=== PATIENT | female | born 1950 | race Caucasian/White ===

== ENCOUNTER 2016-07-11 19:17 | Inpatient (IN) ==
[2016-07-11] MEDS ORDERED: HYDROmorphone 2 MG/1 ML VIAL ONE (20:10)
[2016-07-11] MEDS ORDERED: ONDANSETRON 4 MG/2 ML VIAL ONE ×2 (20:10→21:07)
[2016-07-11 20:13] LABS: Albumin 3.6 G/DL (3.4-5.0); Bilirubin,Total 0.8 MG/DL (0.2-1.0); Calcium 8.2 MG/DL (8.5-10.1); Osmolality,Calculated 289.8 MOS/KG (273-304); Potassium 3.7 MMOL/L (3.5-5.1); Total Protein 7.1 G/DL (6.4-8.3)
--- NOTE | 2016-07-11 20:17 | CT Report ---
Exam: CT scan of brain without contrast Date: 07/11/2016 Indication: Status post fall decreased level consciousness Comparison: None Patient's classification: Emergency department Technical: Images were obtained from the skull base to the vertex without the use of intravenous contrast. Dose reduction was performed with decreasing kv and mA and automated exposure Total DLP: 1025.6 mGy*cm Findings: Examination reveals an area of infarction in the left basal ganglia that appears to be old with encephalomalacia change and some subsequent enlargement of the ventricle system and cerebral atrophy present. The brainstem is otherwise unremarkable. Cerebellum reveals no acute hemorrhage or infarction. The paranasal sinuses globes and sella are intact. The mastoids are otherwise unremarkable. Bilateral lung ureters are present and surgical changes present in the left middle ear region Impression: 1. 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 No acute hemorrhage infarct or mass effect 3. Previous surgical changes in the left middle ear region PROCEDURE INTERPRETED AT [facility] DEPARTMENT OF RADIOLOGY Final Report Signed by: Dr. Mannie Gardner
[2016-07-11] MEDS ORDERED: HYDROmorphone 2 MG/1 ML VIAL IV STA (20:18)
--- NOTE | 2016-07-11 20:19 | XRay Report ---
Exam: XR hip 2V LT Date: 07/11/2016 7:53 PM Indication: Pain after falling Comparison: None Technical:AP lateral Findings: Examination reveals that intratrochanteric fracture of the right hip suspected. The femoral head is seated within the acetabular region. There is a proximal 90? angulation with impaction at the fracture site. Fracture of the lesser trochanteric region also present. The pubic rami are intact. The SI joints and sacrum iliac wings are intact. Impression: 1. Impacted intratrochanteric fracture left femoral neck with avulsion fracture of the lesser trochanteric region. PROCEDURE INTERPRETED AT [facility] DEPARTMENT OF RADIOLOGY Final Report Signed by: Dr. Mannie Gardner
--- NOTE | 2016-07-11 20:27 | Emergency Department Note ---
Arrival - Arrival Chief Complaint: Fall ED Nursing Triage Note: C/O Left hip pain s/p tripping and falling onto left side. Pt reports that she was unable to get up after the fall. +pedal pulses palpated equal and strong. unable to straighten out leg due to pain. Pt was given 5mg Morphine/4mg zofran IV without much relief in pain Mode of Arrival: Stretcher Limitations: No Limitations Source: Patient Time Seen by Provider: 07/11/16 19:42 - History of Present Illness HPI Narrative: The patient complains of left hip pain after tripping and falling onto her left side. She states she had a brief loss of consciousness and was unable to get up from the fall. She was down on the floor for approximately one hour. She denies any other pain or injury at present. She states she has osteoporosis and has had multiple broken bones in the past, but never any hip fractures or replacements. Date of Last Menstrual Period: Hysterectomy Allergies/Adverse Reactions: Allergies Allergy/AdvReac Type Severity Reaction Status Date / Time codeine Allergy Nausea Verified 10/21/15 15:02 iodine Allergy Nausea Verified 10/21/15 15:02 meperidine [From Demerol] Allergy Nausea Verified 10/21/15 15:02 Home Medications: Home Medications Medication Instructions Recorded Confirmed Type Acetaminophen Tab [Tylenol Tab] 325 mg PO BID tablet 10/26/15 07/11/16 Rx Aspirin Chew Tab 81 mg PO DAILY tablet 10/26/15 07/11/16 Rx Captopril [Capoten] 6.25 mg PO BID #60 tablet 10/26/15 07/11/16 Rx Carvedilol [Coreg] 3.125 mg PO BID #60 tablet 10/26/15 07/11/16 Rx Furosemide Tab [Lasix Tab] 20 mg PO DAILY #30 tablet 10/26/15 07/11/16 Rx Spironolactone [Aldactone] 12.5 mg PO DAILY #30 tablet 10/26/15 07/11/16 Rx Review of System - Review of System 12 point system: reviewed and no additional remarkable complaints except as stated - Review of System Musculoskeletal: Present: leg pain Medical,Surgical,& Family Hx - Medical History Cardio: History of: Hypertension, Valvular Heart Disease Endocrine: History of: Dyslipidemia Musculoskeletal: History of: Osteoporosis - Surgical History Surgical History: noncontributory - Family History Family History: noncontributory - Social History Smoking Status: Never smoker Frequency of Alcohol Use: None Exam Physical Examination: GENERAL: Alert. No acute distress. HEENT: Normocephalic and atraumatic. PERRLA. EOMI. No mccall sign. No drainage from the ears. There is no nasal drainage. No pharyngeal erythema or exudate. NECK: Normal inspection. Supple. No lymphadenopathy or meningismus. LUNGS: No respiratory distress. Clear to auscultation bilaterally, no wheezes, rales or rhonchi. HEART: Regular rate and rhythm. Harsh 3/6 systolic murmur. ABDOMEN: Soft, nontender and nondistended with normoactive bowel sounds. BACK: Normal inspection. SKIN: Color normal. Warm and dry. EXTREMITIES: There is tenderness and deformity over the left hip. No ecchymosis noted. The extremity is flexed at the hip and shortening and internally rotated. The patient will not allow movement at the hip. She has full range of motion in the ankle and toes. Dorsalis pedis pulses and capillary refill are normal. Sensation is normal. NEUROLOGICAL/PSYCHIATRIC: Alert and oriented 3 with normal mood and affect. Cranial nerves normal. No motor or sensory deficit. Vital Signs: Vital Signs Temperature 97.5 F L 07/11/16 19:17 Pulse Rate 65 07/11/16 20:30 Respiratory Rate 18 07/11/16 20:30 Blood Pressure 177/71 07/11/16 20:30 O2 Sat by Pulse Oximetry 98 07/11/16 20:30 Course - Reevaluation(s) Reevaluation #1: I have discussed the patient with Dr. Soto and will admit to him for repair of hip fracture. Time: 21:08 Results - Labs CBC & BMP: 07/11/16 19:38 07/11/16 19:38 Lab Results: I have reviewed the patients labs - Impressions CT of the head shows an old lacunar infarct but no acute findings. X-ray of the left hip shows an impacted intratrochanteric fracture of the left femoral neck Disposition Clinical Impression: Hip fracture Case discussed with: patient, patient's family Disposition: Still a Patient Condition: Stable Time of Disposition: 21:08
[2016-07-11 20:47] LABS: Basophils % 0.3 % (0.0-0.8); Eosinophils # 0.3 10*3/uL (0.0-0.87); Eosinophils % 2.7 % (0.00-10.9); Hematocrit 38.9 VOL% (35.7-47.0); Hemoglobin 12.8 GM/DL (12.0-16.0); Immature Granulocytes % 0.7 %; Immature Granulocytes Absolute 0.08 #; Lymphocytes # 0.9 10*3/uL (1.4-4.0); Lymphocytes % 7.5 % (21.3-54.2); Mean Corpuscular HGB Conc 32.9 GM/DL (32-36); Mean Corpuscular Hemoglobin 28 PG (27-34); Mean Corpuscular Volume 84.6 FL (87-102); Monocytes # 0.4 10*3/uL (0.11-0.8); Monocytes % 3.1 % (1.7-12.7); Neutrophils # 10.5 10*3/uL (1.4-7.4); Neutrophils % 85.7 % (38.7-73.9); Platelet Count 211 10*3/uL (130-400); White Blood Count 12.2 10*3/uL (4.5-13.71)
--- NOTE | 2016-07-11 21:14 | EKG Report ---
Stationary ECG Study 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
[2016-07-11] MEDS ORDERED: ONDANSETRON 4 MG/2 ML VIAL IV STA (21:15)
--- NOTE | 2016-07-11 21:21 | XRay Report ---
Exam: XR chest 1V portable Date: 07/11/2016 8:48 PM Indication: Respiratory preop evaluation of the chest fractured left hip Comparison: 10/24/2015 Technical:AP portable Findings: Cardiomegaly is present. External cardiac leads and oxygen tubing are present. No obvious effusions. A few reticular nodular densities are present. Mediastinum is intact. Bony demineralization is present with arthritic change of the shoulders and thoracic spine. Impression: 1. Cardiomegaly without overt decompensation. PROCEDURE INTERPRETED AT [facility] DEPARTMENT OF RADIOLOGY Final Report Signed by: Dr. Mannie Gardner
[2016-07-11] MEDS ORDERED: MAGNESIUM HYDROXIDE SUSP 30 ML UDCUP PO PRN (21:48)
[2016-07-11] MEDS ORDERED: PROMETHAZINE 25 MG/1 ML VIAL IM PRN (21:48)
[2016-07-11 22:45] LABS: PT Patient Result 10.5 SECS; Partial Thromboplastin Time 27.9 SECS (0-40)
[2016-07-11] MEDS: DEXTROSE 5% NACL 0.45% 1,000 ML IV SCH (22:46)
[2016-07-11] MEDS: ONDANSETRON 4 MG/2 ML VIAL IV PRN (23:04)
[2016-07-12] MEDS: HYDROmorphone 2 MG/1 ML VIAL IV PRN ×4 (02:19→21:24)
[2016-07-12] MEDS: ONDANSETRON 4 MG/2 ML VIAL IV PRN ×4 (05:04→21:38)
--- NOTE | 2016-07-12 05:50 | Hospitalist Consult Note ---
Assessment and Plan (1) Fracture of femoral neck, left Status: Acute Current Visit: Yes (2) Hypertension Status: Acute Current Visit: Yes (3) Mitral regurgitation Status: Acute Assessment and plan: Plan: Continue her current home medications. We'll resume her ACEi postop. Hold her aspirin for now. Given her history of mitral regurgitation and, according to the patient, worsening shortness of breath with exertion as of late, we'll consult Dr. 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 She was seen last year for chest pain, and I'm unsure if/when she is followed up with him for echo and stress test. In the meantime blood pressure control and supportive care for pain and nausea. At this time she reports no shortness of breath at rest, and no chest pain. Her EKG does not show any acute ischemic changes. Current Visit: Yes History of Present Illness - Data of Consult Consult date: 07/12/16 Requesting Physician: Jose Soto Jr. - Consult Narrative Reason for consult: pre op eval History of present illness: Ms. Ortiz is a 66 year old female with hypertension, mitral regurgitation, who tripped over a box of water this evening resulting in a fall and left femoral neck fracture. She denies any chest pain preceding the event to her syncopal episode prior to, however she states after the fall she may have lost consciousness for "a little bit." CT brain was negative. She sees Dr. Kiser for mitral regurg and "congestive heart failure." I saw her last discharge summary from October 2015 at which time she had chest pain, normal EF on echo as well as MR. Her chest pain was thought to be more chest wall etiology and she declined heart cath that time. Not sure exactly if and when she followed up with Dr. Kiser for stress test and echo and what the showed. She does report worsening dyspnea on exertion lately and occasional chest pain however she does not have either of these symptoms now while resting in bed. She denies nausea vomiting or fever or cough. CC: Jose Soto Jr., - Home Medications and Allergies Home Medications: Home Medications Medication Instructions Recorded Confirmed Type Acetaminophen Tab [Tylenol Tab] 325 mg PO BID tablet 10/26/15 07/11/16 Rx Aspirin Chew Tab 81 mg PO DAILY tablet 10/26/15 07/11/16 Rx Captopril [Capoten] 6.25 mg PO BID #60 tablet 10/26/15 07/11/16 Rx Carvedilol [Coreg] 3.125 mg PO BID #60 tablet 10/26/15 07/11/16 Rx Furosemide Tab [Lasix Tab] 20 mg PO DAILY #30 tablet 10/26/15 07/11/16 Rx Spironolactone [Aldactone] 12.5 mg PO DAILY #30 tablet 10/26/15 07/11/16 Rx Allergies/Adverse Reactions: Allergies Allergy/AdvReac Type Severity Reaction Status Date / Time codeine Allergy Nausea Verified 10/21/15 15:02 iodine Allergy Nausea Verified 10/21/15 15:02 meperidine [From Demerol] Allergy Nausea Verified 10/21/15 15:02 Medical,Surgical,& Family Hx - Medical History Cardio: History of: CHF, Hypertension, Valvular Heart Disease (mitral regurgitation) HEENT: History of: Eye Problem (glasses) Endocrine: History of: Dyslipidemia No history of: Diabetes Mellitus (NIDDM) Genitourinary: History of: Kidney Stones Musculoskeletal: History of: Back/Neck Problems (back problems), Osteoporosis - Surgical History Cardiac Surgeries: Patient Denies: Cardiac Catheterization Thoracic Surgeries: Surgical HX of;: Lithotripsy Patient denies;: Lobectomy Neurologic Surgeries: Patient denies: Neurologic Surgery HEENT Surgeries: Patient denies: Tonsilectomy & Adenoidectomy Abdominal Surgeries: Surgical HX of: Abdominal Surgery, Appendectomy Reproductive Surgeries: Surgical HX of;: Hysterectomy Orthopedic Surgeries: Surgical HX of;: Orthopedic Surgery (left leg, back) - Family History Family History: Reports;: Family Cancer (father), Family Heart Disease (mother) , Family Hypertension (mom and dad) - Social History Smoking Status: Never smoker Frequency of Alcohol Use: None Marital Status: Unknown Functional capacity: independent ambulation Review of systems: A 12 point review of systems is negative except as specified in the HPI Exam - Constitutional Vitals: Period Temp Pulse Resp BP Sys/Gurrola Pulse Ox Last 24 Hr 96.9 F-97.6 F 58-66 16-18 134-170/59-72 92-98 Exam: EXAM: CONSTITUTIONAL: non toxic, NAD HEENT: NC, AT, OP benign, ADELITA, EOMI CV: RRR + grade 3/6 holosystolic murmur at the apex RESP: clear B/L, no w/r/r GI: abd soft, NT, ND, +bowel sounds INTEGUMENTARY: no lesions or rash EXTREMITIES: Left lower extremity appears internally rotated, hip is tender to palpation, pedal pulses intact NEURO: no focal deficits PSYCH: Awake and alert Results - Labs CBC & BMP: 07/11/16 19:38 07/11/16 19:38 Lab Results: I have reviewed the past 24 hour labs - EKG EKG shows: sinus rhythm - Diagnostic Findings Procedure: Chest x-ray: image reviewed by me, report reviewed by me, CT: image reviewed by me, report reviewed by me, X-ray: image reviewed by me, report reviewed by me
--- NOTE | 2016-07-12 07:56 | Orthopedic History & Physical ---
Assessment and Plan (1) Closed intertrochanteric fracture of left hip Status: Acute Current Visit: Yes Qualifiers: Encounter type: initial encounter Qualified Code(s): S72.142A - Displaced intertrochanteric fracture of left femur, initial encounter for closed fracture History of Present Illness Chief complaint: left intertrochanteric hip fracture History of present illness: Ms. Ortiz is a 66 year old female who fell last night while carrying her laundry and tripped over a box of water. The patient denies any other history of recurrent of the injury. The patient is an independent ambulator. She has a history of multiple fractures in the past which include her back, wrists, ribs , shoulder. She is not on any recent treatment. She has been treated for osteoporosis in the past. The patient had a momentary loss of consciousness with the injury. Her head CT demonstrates no acute change. 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 Her present. She does have exertional shortness of breath. She is alert and oriented. Lungs clear to auscultation Heart regular rate and rhythm Abdomen soft Spine, bilateral upper extremities and right lower extremity without acute deformity. Left lower extremity is slightly shortened but not externally rotated. Skin, sensation, motors pulses are intact to her foot. AP lateral hip demonstrate a left intertrochanteric hip fracture. Impression: Left intertrochanteric hip fracture Plan: The patient has a pending cardiology consult. When optimized by cardiology, plan open reduction fixation of her left hip. I've tentatively placed her on for this afternoon. Risks and benefits were discussed. All questions were answered. Risks include but not limited to infection, bleeding, anesthesia, thromboembolic event, , failure to heal, need for further operation, etc. More than likely will require inpatient rehabilitation. Home Medications Medication Instructions Recorded Confirmed Type Acetaminophen Tab [Tylenol Tab] 325 mg PO BID tablet 10/26/15 07/11/16 Rx Aspirin Chew Tab 81 mg PO DAILY tablet 10/26/15 07/11/16 Rx Captopril [Capoten] 6.25 mg PO BID #60 tablet 10/26/15 07/11/16 Rx Carvedilol [Coreg] 3.125 mg PO BID #60 tablet 10/26/15 07/11/16 Rx Furosemide Tab [Lasix Tab] 20 mg PO DAILY #30 tablet 10/26/15 07/11/16 Rx Spironolactone [Aldactone] 12.5 mg PO DAILY #30 tablet 10/26/15 07/11/16 Rx Allergies Allergy/AdvReac Type Severity Reaction Status Date / Time codeine Allergy Nausea Verified 10/21/15 15:02 iodine Allergy Nausea Verified 10/21/15 15:02 meperidine [From Demerol] Allergy Nausea Verified 10/21/15 15:02 12 point system: reviewed and no additional remarkable complaints except as stated Medical,Surgical,& Family Hx - Medical History Cardio: History of: CHF, Hypertension, Valvular Heart Disease (mitral regurgitation) HEENT: History of: Eye Problem (glasses) Endocrine: History of: Dyslipidemia No history of: Diabetes Mellitus (NIDDM) Genitourinary: History of: Kidney Stones Musculoskeletal: History of: Back/Neck Problems (back problems), Osteoporosis - Surgical History Cardiac Surgeries: Patient Denies: Cardiac Catheterization Thoracic Surgeries: Surgical HX of;: Lithotripsy Patient denies;: Lobectomy Neurologic Surgeries: Patient denies: Neurologic Surgery HEENT Surgeries: Patient denies: Tonsilectomy & Adenoidectomy Abdominal Surgeries: Surgical HX of: Abdominal Surgery, Appendectomy Reproductive Surgeries: Surgical HX of;: Hysterectomy Orthopedic Surgeries: Surgical HX of;: Orthopedic Surgery (left leg, back) - Family History Family History: Reports;: Family Cancer (father), Family Heart Disease (mother) , Family Hypertension (mom and dad) - Social History Smoking Status: Never smoker Frequency of Alcohol Use: None Exam - Constitutional Vitals: Period Temp Pulse Resp BP Sys/Gurrola Pulse Ox Last 24 Hr 96.9 F-97.6 F 58-66 16-18 134-170/59-72 92-98 Results - Labs CBC & BMP: 07/11/16 19:38 07/11/16 19:38
[2016-07-12 08:03] LABS: Basophils % 0.1 % (0.0-0.8); Hematocrit 37.2 VOL% (35.7-47.0); Hemoglobin 12.2 GM/DL (12.0-16.0); Immature Granulocytes % 0.4 %; Immature Granulocytes Absolute 0.06 #; Lymphocytes # 0.5 10*3/uL (1.4-4.0); Lymphocytes % 3.3 % (21.3-54.2); Mean Corpuscular HGB Conc 32.8 GM/DL (32-36); Mean Corpuscular Hemoglobin 28 PG (27-34); Mean Corpuscular Volume 86.1 FL (87-102); Mean Platelet Volume 11.5 FL (9.6-12.0); Monocytes # 0.4 10*3/uL (0.11-0.8); Monocytes % 2.4 % (1.7-12.7); Neutrophils # 14.9 10*3/uL (1.4-7.4); Neutrophils % 93.8 % (38.7-73.9); Platelet Count 207 10*3/uL (130-400); Red Blood Count 4.32 10*6/uL (3.8-5.5); Red Cell Distribution Width 14.1 % (9.3-17.3); White Blood Count 15.9 10*3/uL (4.5-13.71)
--- NOTE | 2016-07-12 08:19 | XRay Report ---
AP pelvis. Comparison: Left hip, dated July 11, 2016. Indication: Left hip fracture. The osseous structures are diffusely demineralized. Degenerative changes are noted within the lower spinal column. The pubic symphysis and SI joints are of normal width. There is a displaced intertrochanteric fracture of the left proximal femur. The femoral head remains seated within the acetabulum which demonstrates mild to moderate spurring. Similar osteophyte formation is seen at the right acetabulum. No lytic or blastic lesion noted. Impression: Comminuted displaced fracture of the left proximal femur. PROCEDURE INTERPRETED AT [facility] DEPARTMENT OF RADIOLOGY Final Report Signed by: Dr. Damaris Fuentes
[2016-07-12 08:29] LABS: Calcium 8.2 MG/DL (8.5-10.1); Osmolality,Calculated 293.7 MOS/KG (273-304); Potassium 4.3 MMOL/L (3.5-5.1)
[2016-07-12] MEDS ORDERED: FAMOTIDINE 20 MG/2 ML VIAL IV ONE (08:32)
[2016-07-12 08:42] LABS: Hypochromasia Slight; Lymphocytes 2 % (20-55); Platelet Estimate Normal; Segmented Neutrophils 96 % (50-85); Total Cells Counted 100
[2016-07-12] MEDS: FUROSEMIDE 20 MG TABLET PO SCH (09:34)
[2016-07-12] MEDS: CARVEDILOL 3.125 MG TABLET PO SCH ×2 (09:35→21:11)
[2016-07-12] MEDS: SPIRONOLACTONE 25 MG TABLET PO SCH (09:35)
[2016-07-12] MEDS: DEXTROSE 5% NACL 0.45% 1,000 ML IV SCH ×2 (09:36→23:42)
[2016-07-12 10:58] LABS: Amorphous Crystals,Urine Few /HPF (Few); Apearance,Urine CLOUDY (Clear); Bacteria,Urine Occasional /HPF (Few); Bilirubin,Urine Negative (Negative); Blood, Urine Large mg/dL (Negative); Glucose,Urine (UA) Negative (Negative); Ketones,Urine Negative (Negative); Mucus,Urine Many /LPF (Occasional); Nitrite,Urine Negative (Negative); Protein,Urine 30 MG/DL; RBC,Urine 77 /HPF (0-4); Urine Specific Gravity 1.025 (1.001-1.035); Urine Urobilinogen < 2.0 EU/DL (0.2-1.0); WBC,Urine 167 /HPF (0-6)
[2016-07-12 11:00] LABS: Urine Color Yellow (Yellow)
--- NOTE | 2016-07-12 13:32 | Cardiology Consult Note ---
Calvin Goodwin Vanessa, RN, am scribing for, and in the presence of, Benny Machado MD 13:32. Assessment and Plan - Time spent with patient Time spent with patient: Greater than 30 minutes (due to assessment, planning, documentation) (1) Closed intertrochanteric fracture of left hip Status: Acute Assessment and plan: She is clear from a cardiovascular standpoint for your planned surgery. We will follow. Current Visit: Yes Qualifiers: Encounter type: initial encounter Qualified Code(s): S72.142A - Displaced intertrochanteric fracture of left femur, initial encounter for closed fracture (2) Heart failure, diastolic, acute on chronic Status: Acute Current Visit: Yes (3) Anxiety and depression Status: Acute Current Visit: Yes (4) Mitral regurgitation Status: Acute Current Visit: Yes (5) Left ventricular hypertrophy by electrocardiogram Status: Acute Current Visit: Yes (6) Hypertension Status: Acute Current Visit: Yes (7) Osteoarthritis Status: Acute Current Visit: Yes History of Present Illness - Data of Consult Patient: known to practice within the last 3 years Consult date: 07/12/16 Requesting Physician: Jose Soto Jr. - Consult Narrative Reason for consult: cardiac clearance for ORIF left hip History of present illness: Ms. Ortiz is a 66 year old white female routinely followed in clinic by Dr. Brady Kiser. PMHx includes HTN, chronic diastolic CHF, mitral regurgitation , GERD, osteoarthritis, anxiety, and depression. Presented to ER last night after tripping over a box of water at home, fell, and found to have a closed fracture of left hip. States she did lose consciousness for a moment, but she does recollect the events leading up to fall and denies any chest discomfort, shortness of breath, presyncope, palpitation or other prior to event. Head CT in ER negative for acute hemorrhage infarct or mass but did show small vessel ischemic changes and atrophy with old lacunar infarct. She is now tentatively scheduled for ORIF of left hip this afternoon by Dr. Soto, and cardiology has been consulted for cardiac clearance. Last hospital admission was October 2015 for mild heart failure and some atypical, reproducible left chest wall pain. Responded well to LEANDRA inhibitor, Coreg, Lasix. Aldactone added to regimen at that time for some slightly continued shortness of breath and was tolerated well. Did not have cardiac catheterization. Discharged home, set up for outpatient echo to reassess LV EF and MR and also had Sestamibi Dobutamine perfusion scan at that time. Echocardiogram revealed an LV ejection fraction of > 55%, AV sclerosis, mild TR , and 1-2+ MR. Perfusion scan without evidence of inducible ischemia with some areas of thinning noted but felt to be related to attentuation, normal LV size and normal systolic thickening with near normal thickening. Overall EF 50-55%. Last seen by Dr. Kiser in December 2015 for follow up and had less shortness of breath, no chest pain. Also had decreased depression and anxiety and stopped taking SSRI at that time. No orthopnea, PND, palpitations, syncope, cough, or wheeze at that time. Patient examined with at bedside. She is tearful and appears anxious. States had some nausea earlier after receiving IV Dilaudid, and has recently received Zofran for complaint. She denies any current chest pain or acute dyspnea. Does admit VELAZCO, but says it has not increased in severity since she was last seen in clinic. Her at bedside agrees. Denies dizziness, palpitation, cough, presyncope, recent or current orthopnea or LE edema. No overt signs or clinical findings of heart failure or ACS. EKG with some ST depression noted. Compared to previous EKG's in October and essentially unchanged. BP is 135/70 with HR 60's, regular rhythm. No recent chills or fever per patient report. Labs reviewed. Electrolytes are WNL. White count slight elevation 15.9. She has mitral insufficiency and increasing dyspnea which will need to be evaluated but I don't think its prohibitive as far surgery is concerned she is clear for surgery as you plan. CC: Jose Soto Jr., - Home Medications and Allergies Home Medications: Home Medications Medication Instructions Recorded Confirmed Type Acetaminophen Tab [Tylenol Tab] 325 mg PO BID tablet 10/26/15 07/11/16 Rx Aspirin Chew Tab 81 mg PO DAILY tablet 10/26/15 07/11/16 Rx Captopril [Capoten] 6.25 mg PO BID #60 tablet 10/26/15 07/11/16 Rx Carvedilol [Coreg] 3.125 mg PO BID #60 tablet 10/26/15 07/11/16 Rx Furosemide Tab [Lasix Tab] 20 mg PO DAILY #30 tablet 10/26/15 07/11/16 Rx Spironolactone [Aldactone] 12.5 mg PO DAILY #30 tablet 10/26/15 07/11/16 Rx Allergies/Adverse Reactions: Allergies Allergy/AdvReac Type Severity Reaction Status Date / Time codeine Allergy Nausea Verified 10/21/15 15:02 iodine Allergy Nausea Verified 10/21/15 15:02 meperidine [From Demerol] Allergy Nausea Verified 10/21/15 15:02 - Constitutional Constitutional: Absent: anorexia, chills, daytime sleepiness, excessive sweating , fever(s), frequent falls, night sweats, stops breathing during sleep, weakness , weight gain, weight loss - EENT Eyes: Absent: blurry vision Ears: Absent: decreased hearing Nose, mouth and throat: Absent: dysphagia, epistaxis, nasal congestion, neck mass, neck pain, sinus pressure, sore throat, throat swelling, tongue swelling, vertigo - Cardiovascular Cardiovascular: Present: dyspnea on exertion (not increased in severity since hospitalized 11/01). Absent: chest pain at rest, chest pain with activity, dyspnea, edema, radiating jaw, neck or arm pain, lightheadedness, orthopnea, palpitations, PND - Respiratory Respiratory: Present: dyspnea on exertion. Absent: cough, dyspnea, hemoptysis, wheezing, snoring, change in phlegm color - Gastrointestinal Gastrointestinal: Present: nausea. Absent: abdominal pain, bloating, change in bowel habits, constipation, early satiety, hematochezia, melena, vomiting, jaundice - Genitourinary Genitourinary: Absent: flank pain, hematuria - Musculoskeletal Musculoskeletal: Present: back pain, limited range of motion - Neurological Neurological: Absent: dizziness, frequent falls, headache(s), memory loss, syncope, tremor(s) - Psychiatric Psychiatric: Present: anxiety, depression. Absent: auditory hallucinations, confusion, memory loss, visual hallucinations - Endocrine Endocrine: Absent: cold intolerance, heat intolerance - Hematologic/Lymphatic Hematologic/Lymphatic: Absent: easy bleeding, easy bruising Medical,Surgical,& Family Hx - Medical History Cardio: History of: CHF, Hypertension, Valvular Heart Disease (mitral regurgitation) No history of: Cardiac Dysrhythmia, [place] Psychological: History of: Anxiety Disorders, Depression Neurology: No history of: Dementia, Seizures, TIA, Vertigo HEENT: History of: Eye Problem (glasses) Endocrine: History of: Dyslipidemia No history of: Diabetes Mellitus (NIDDM) Rheumatology: No history of;: Systemic Lupus Erythematosus Respiratory: No history of: Asthma, Bronchitis, Obstructive Sleep Apnea, Pulmonary Hypertension Renal: No history of: Renal Failure Genitourinary: History of: Kidney Stones Gastrointestinal: History of: GERD No history of: Gastrointestinal Bleed, Hepatitis, Liver Problems Musculoskeletal: History of: Back/Neck Problems (back problems), Osteoporosis Hematology: No history of: Bleeding Problems, Blood Disorders - Surgical History Cardiac Surgeries: Patient Denies: Cardiac Catheterization Thoracic Surgeries: Surgical HX of;: Lithotripsy Patient denies;: Lobectomy Neurologic Surgeries: Patient denies: Neurologic Surgery HEENT Surgeries: Patient denies: Tonsilectomy & Adenoidectomy Abdominal Surgeries: Surgical HX of: Abdominal Surgery, Appendectomy Reproductive Surgeries: Surgical HX of;: Hysterectomy Orthopedic Surgeries: Surgical HX of;: Orthopedic Surgery (left leg, back) - Family History Family History: Reports;: Family Cancer (father), Family Heart Disease (mother) , Family Hypertension (mom and dad) - Social History Smoking Status: Never smoker Frequency of Alcohol Use: None Marital Status: Lives With:: Spouse Functional capacity: independent ambulation Physical Examination Vital Signs Temp Pulse Resp BP Pulse Ox 97.5 F L 69 20 197/62 95 07/11/16 19:17 07/11/16 19:17 07/11/16 19:17 07/11/16 19:17 07/11/16 19:17 General: Present: Other (currently nauseated, tearful with some anxiety) Neck: Present: Midline Trachea, No JVD/HJR Cardiac: Present: Reg Rate and Rhythm, Audible Murmur, Systolic Murmur (murmur consistent with mitral insufficiency. Grade 3 murmur) Lungs: Present: Clear Ascult./Percussion, No Wheeze, Rales, Rhonchi Neuro: Present: Grossly Intact. Absent: Resting Tremor Abdomen: Present: Soft, Active Bowel Sounds Skin: Present: Clear Musculoskeletal: Present: No Fluid Collection. Absent: Normal Range of Motion Extremities: Present: No Clubbing, No Cyanosis, No Edema, Normal Upper Extr. Pulses (3+ bilaterally), Normal Lower Extr. Pulses (3+ bilaterally), Capillary Refill (normal) Result/EKG - Labs CBC & BMP: 07/12/16 07:51 07/12/16 07:51 Lab Results: I have reviewed the past 24 hour labs Labs: Laboratory Results - last 24 hr 07/11/16 07/12/16 07/12/16 21:59 07:51 07:51 WBC 15.9 H D RBC 4.32 Hgb 12.2 Hct 37.2 MCV 86.1 L MCH 28 MCHC 32.8 RDW 14.1 Plt Count 207 MPV 11.5 Neut % (Auto) 93.8 H Lymph % (Auto) 3.3 L [place] % (Auto) 2.4 Eos % (Auto) 0.0 Baso % (Auto) 0.1 Neut # (Auto) 14.9 H Lymph # (Auto) 0.5 L [place] # (Auto) 0.4 Eos # (Auto) 0.0 Baso # (Auto) 0.0 Immature Gran % 0.4 Nucleated RBC % 0.0 Immature Gran # 0.06 Nucleated RBCs # 0.00 Sodium 145 Potassium 4.3 Chloride 109 H Carbon Dioxide 27 Anion Gap 13.3 BUN 22 H Creatinine 0.90 GFR Calculation 60 BUN/Creatinine Ratio 24.00 H Glucose 155 H Calculated Osmolality 293.7 Calcium 8.2 L Blood Type A POSITIVE Antibody Screen Negative - Diagnostic Findings Procedure: Chest x-ray: report reviewed by me (07/12 cardiomegaly without overt decompensation) - EKG EKG results: interpreted by me, no acute changes EKG shows: sinus rhythm (ST depression without significant change from EKG 2015) ICarter Wesley, MD, personally performed the services described in this documentation, ascribed by Yanely Simpson RN in my presence, and it is both accurate and complete [id number] .
--- NOTE | 2016-07-12 15:03 | Event Note ---
66 yo female with non-syncopal fall with left hip fracture. Reviewed by cardiology with comprehensive non-invasive evaluation within the last year. Surgical clearance provided and is awaiting procedure. Vitals have continued stable subsequent to admission. Chest negative CV 2-3/6 apical and anterior precordial murmur (known mitral valve disease)
[2016-07-13] MEDS: HYDROmorphone 2 MG/1 ML VIAL IV PRN ×2 (02:28→06:51)
[2016-07-13] MEDS: ONDANSETRON 4 MG/2 ML VIAL IV PRN ×2 (02:29→06:51)
[2016-07-13 06:03] LABS: Basophils % 0.1 % (0.0-0.8); Eosinophils # 0.4 10*3/uL (0.0-0.87); Eosinophils % 2.7 % (0.00-10.9); Hematocrit 34.8 VOL% (35.7-47.0); Hemoglobin 11.1 GM/DL (12.0-16.0); Immature Granulocytes % 0.4 %; Immature Granulocytes Absolute 0.06 #; Lymphocytes # 1.2 10*3/uL (1.4-4.0); Lymphocytes % 8.7 % (21.3-54.2); Mean Corpuscular HGB Conc 31.9 GM/DL (32-36); Mean Corpuscular Hemoglobin 28 PG (27-34); Mean Corpuscular Volume 86.1 FL (87-102); Mean Platelet Volume 11.8 FL (9.6-12.0); Monocytes # 0.9 10*3/uL (0.11-0.8); Monocytes % 6.3 % (1.7-12.7); Neutrophils # 11.4 10*3/uL (1.4-7.4); Neutrophils % 81.8 % (38.7-73.9); Platelet Count 189 10*3/uL (130-400); Red Blood Count 4.04 10*6/uL (3.8-5.5); Red Cell Distribution Width 14.5 % (9.3-17.3); White Blood Count 13.9 10*3/uL (4.5-13.71)
[2016-07-13 06:36] LABS: Calcium 8.1 MG/DL (8.5-10.1)
[2016-07-13 06:37] LABS: Potassium 4.3 MMOL/L (3.5-5.1)
--- NOTE | 2016-07-13 07:34 | Orthopedic Progress Note ---
Assessment and Plan (1) Closed intertrochanteric fracture of left hip Status: Acute Current Visit: Yes Qualifiers: Encounter type: initial encounter Qualified Code(s): S72.142A - Displaced intertrochanteric fracture of left femur, initial encounter for closed fracture Orthopedics - Subjective Interval history: Anxious this am. LLE NV ok. labs reviewed. Reassured patient. All questions answered. Plan ORIF this am. Exam - Constitutional Vitals: Period Temp Pulse Resp BP Sys/Gurrola Pulse Ox Last 24 Hr 97.8 F-98.7 F 54-71 17-19 136-158/63-72 95-100 Results - Labs CBC & BMP: 07/13/16 05:40 07/13/16 05:40
[2016-07-13] MEDS: DEXTROSE 5% NACL 0.45% 1,000 ML IV SCH (07:43)
[2016-07-13] MEDS ORDERED: CARVEDILOL 3.125 MG TABLET ONE (07:48)
[2016-07-13] MEDS: CARVEDILOL 3.125 MG TABLET PO SCH ×3 (07:51→20:06)
[2016-07-13] MEDS ORDERED: PROPOFOL 200 MG/20 ML VIAL IV ONE (07:53)
[2016-07-13] MEDS: LACTATED RINGERS 1,000 ML IV SCH ×2 (07:55→10:40)
[2016-07-13] MEDS ORDERED: MAGNESIUM HYDROXIDE SUSP 30 ML UDCUP PO PRN (09:48)
--- NOTE | 2016-07-13 09:52 | XRay Report ---
XR hip OR LT Indication: Compression nailing left femur Comparison: Left hip x-ray dated July 11, 2016 Technique: 4 intraoperative fluoroscopic views of the left hip. Fluoroscopy time 53 seconds. Findings: Images demonstrate dynamic compression screw traversing the femoral head/neck which is connected to plate and screws in the proximal femoral diaphysis. This hardware is across an intertrochanteric fracture. Please see operative report for details. IMPRESSION: As above. PROCEDURE INTERPRETED AT [facility] DEPARTMENT OF RADIOLOGY Final Report Signed by: Dr Carter Koroma
--- NOTE | 2016-07-13 09:55 | Operative Note ---
Date of procedure: 07/13/16 Procedure: DIAGNOSIS: Left hip intertrochanteric fracture PROCEDURE: Left ORIF hip SURGEON: Brittany ANESTHESIA: Spinal PROCEDURE and FINDINGS: After adequate anesthesia was induced, the patient was placed on the fracture table. A provisional reduction was obtained. The limb was prepped and draped in the usual sterile fashion. Lateral approach to the proximal femur was made. Skin, subcutaneous tissue and iliotibial band were incised. Vastus lateralis was elevated from the intramuscular septum and lateral aspect of the femur. Guidepin was placed, overreamed, and tapped. A derotation pin was placed to keep the head fragment from spinning. 80 mm hip screw was placed followed by a 135 degree 3-hole plate. Screw holes were filled. Wound was irrigated. Iliotibial band was approximated O Vicryl. Subcutaneous used tissues approximated deep with 2-0 Vicryl runner and superficially with 3-0 interrupted Vicryl suture. [place] were used to approximate the skin. Sterile occlusive dressing and bacitracin were applied. Surgeon / Physician: Jose Soto Jr. Results - Labs CBC & BMP: 07/13/16 05:40 07/13/16 05:40 Discharge Plan - Discharge Medications No Action Acetaminophen Tab [Tylenol Tab] 325 mg PO BID tablet Aspirin Chew Tab 81 mg PO DAILY tablet Captopril [Capoten] 6.25 mg PO BID #60 tablet Carvedilol [Coreg] 3.125 mg PO BID #60 tablet Furosemide Tab [Lasix Tab] 20 mg PO DAILY #30 tablet Spironolactone [Aldactone] 12.5 mg PO DAILY #30 tablet - Follow Up or Referral - Forms/Instructions
[2016-07-13] MEDS ORDERED: MIDAZOLAM 2 MG/2 ML VIAL ONE (10:22)
[2016-07-13] MEDS ORDERED: KETAMINE 500 MG/10 ML VIAL ONE (10:22)
[2016-07-13] MEDS: KETOROLAC 30 MG/1 ML VIAL IV SCH ×3 (10:56→22:33)
[2016-07-13] MEDS: FUROSEMIDE 20 MG TABLET PO SCH (10:56)
[2016-07-13] MEDS: SPIRONOLACTONE 25 MG TABLET PO SCH (10:56)
--- NOTE | 2016-07-13 11:16 | Hospitalist Progress Note ---
Assessment and Plan (1) Hypertension Status: Chronic Current Visit: Yes Qualifiers: Hypertension type: essential hypertension Qualified Code(s): I10 - Essential (primary) hypertension (2) Closed intertrochanteric fracture of left hip Status: Acute Assessment and plan: Surgery 07/13 Current Visit: Yes Qualifiers: Encounter type: initial encounter Qualified Code(s): S72.142A - Displaced intertrochanteric fracture of left femur, initial encounter for closed fracture Hospitalist: Subjective Interval history: 66 yo female with non-syncopal fall with left hip fracture with ORIF earlier today. Stable vitals overnight and post-op. Exam - Constitutional Vitals: Period Temp Pulse Resp BP Sys/Gurrola Pulse Ox Last 24 Hr 97.8 F-99.9 F 54-82 16-19 108-158/41-72 96-100 General appearance: normal weight - Respiratory Respiratory exam: Present: clear to auscultation bilaterally. Absent: rales, rhonchi, wheezes - Cardiovascular Cardiovascular exam: Present: regular rate and rhythm, systolic murmur (2/6 mitral regurgitant murmur) - GI/Abdominal GI/Abdominal exam: Present: normal bowel sounds. Absent: distended, tenderness - Extremities Exam Extremities exam: Absent: edema - Neurological Exam Neurological exam: Present: alert, oriented X3 Results - Labs CBC & BMP: 07/13/16 05:40 07/13/16 05:40
[2016-07-13] MEDS: MORPHINE 2 MG/1 ML SYRINGE IV PRN ×2 (14:28→20:06)
--- NOTE | 2016-07-13 14:38 | Anesthesia ---
Anesthesia Post OP - Post Ansesthetic Evaluation Patient seen in post op: Yes Resp: within normal limits CV: within normal limits Mental: within normal limits Temp: within normal limits [id number]: within normal limits Nausea and Vomiting: within normal limits Pain: within normal limits
--- NOTE | 2016-07-13 16:52 | Cardiology Progress Note ---
I, Yanely Simpson RN, am scribing for, and in the presence of, Benny Machado MD 16:52. Assessment and Plan - Time spent with patient Time spent with patient: Less than 30 minutes (1) Closed intertrochanteric fracture of left hip Status: Acute Assessment and plan: She has mitral insufficiency and increasing dyspnea which will need to be evaluated but I don't think its prohibitive as far surgery is concerned. She is clear for surgery as you plan. Current Visit: Yes Qualifiers: Encounter type: initial encounter Qualified Code(s): S72.142A - Displaced intertrochanteric fracture of left femur, initial encounter for closed fracture (2) Heart failure, diastolic, acute on chronic Status: Acute Current Visit: Yes (3) Anxiety and depression Status: Acute Current Visit: Yes (4) Mitral regurgitation Status: Acute Current Visit: Yes (5) Left ventricular hypertrophy by electrocardiogram Status: Acute Current Visit: Yes (6) Hypertension Status: Chronic Current Visit: Yes Qualifiers: Hypertension type: essential hypertension Qualified Code(s): I10 - Essential (primary) hypertension (7) Osteoarthritis Status: Acute Current Visit: Yes Cardiology - PN: Subj Interval history: Vitals stable overnight. BP this AM 136/72, HR in 60's. Labs reviewed. Electrolytes are WNL. H/H/ stable. WBC improved at Patient seen post operatively s/p ORIF left hip. Vitals stable with BP 128/76, HR 60. C/o nausea with no vomiting. Left hip sx dsg D/I without bleed or hematoma noted. Distal pulses present, palpable khari. She is stable immediately postop with some nausea think related to her pain medications. We will check an EKG in the morning and continue to follow. Her exam is benign currently and we will continue as presently Exam (Progress Note) - Constitutional Vitals: Period Temp Pulse Resp BP Sys/Gurrola Pulse Ox Last 24 Hr 97.8 F-98.7 F 54-71 18-19 136-158/63-72 96-100 Exam: General: Present: Other ( Neck: Present: Midline Trachea, No JVD/HJR Cardiac: Present: Reg Rate and Rhythm, Audible Murmur, Systolic Murmur (murmur consistent with mitral insufficiency. Grade 3 murmur) Lungs: Present: Clear Ascult./Percussion, No Wheeze, Rales, Rhonchi Neuro: Present: Grossly Intact. Absent: Resting Tremor Abdomen: Present: Soft, Active Bowel Sounds Skin: Present: Clear Musculoskeletal: Present: No Fluid Collection. Absent: Normal Range of Motion Extremities: Present: No Clubbing, No Cyanosis, No Edema, Normal Upper Extr. Pulses (3+ bilaterally), Normal Lower Extr. Pulses (3+ bilaterally), Capillary Refill (normal) Result/EKG - Labs CBC & BMP: 07/13/16 05:40 07/13/16 05:40 Lab Results: I have reviewed the past 24 hour labs Labs: Laboratory Results - last 24 hr 07/12/16 07/12/16 07/12/16 07:51 07:51 10:05 WBC 15.9 H D RBC 4.32 Hgb 12.2 Hct 37.2 MCV 86.1 L MCH 28 MCHC 32.8 RDW 14.1 Plt Count 207 MPV 11.5 Neut % (Auto) 93.8 H Lymph % (Auto) 3.3 L [place] % (Auto) 2.4 Eos % (Auto) 0.0 Baso % (Auto) 0.1 Neut # (Auto) 14.9 H Lymph # (Auto) 0.5 L [place] # (Auto) 0.4 Eos # (Auto) 0.0 Baso # (Auto) 0.0 Total Counted 100 Immature Gran % 0.4 Nucleated RBC % 0.0 Immature Gran # 0.06 Segmented Neutrophils 96 H Lymphocytes 2 L Monocytes 2 Nucleated RBCs # 0.00 Platelet Estimate Normal Hypochromasia Slight Morphology Comment Sodium 145 Potassium 4.3 Chloride 109 H Carbon Dioxide 27 Anion Gap 13.3 BUN 22 H Creatinine 0.90 GFR Calculation 60 BUN/Creatinine Ratio 24.00 H Glucose 155 H Calculated Osmolality 293.7 Calcium 8.2 L Urine Color Yellow Urine Appearance Cloudy Urine pH 5.0 Ur Specific [place] 1.025 Urine Protein 30 Urine Glucose (UA) Negative Urine Ketones Negative Urine Blood Large Urine Nitrate Negative Urine Bilirubin Negative Urine Urobilinogen < 2.0 H Urine Leukocytes Moderate H Urine RBC 77 Urine WBC 167 Urine WBC Clumps Few Amorphous Crystals Few Urine Bacteria Occasional Urine Mucus Many Ur Culture Indicated? Results to follow 07/13/16 07/13/16 05:40 05:40 WBC 13.9 H RBC 4.04 Hgb 11.1 L Hct 34.8 L MCV 86.1 L MCH 28 MCHC 31.9 L RDW 14.5 Plt Count 189 MPV 11.8 Neut % (Auto) 81.8 H Lymph % (Auto) 8.7 L [place] % (Auto) 6.3 Eos % (Auto) 2.7 Baso % (Auto) 0.1 Neut # (Auto) 11.4 H Lymph # (Auto) 1.2 L [place] # (Auto) 0.9 H Eos # (Auto) 0.4 Baso # (Auto) 0.0 Total Counted Immature Gran % 0.4 Nucleated RBC % 0.0 Immature Gran # 0.06 Segmented Neutrophils Lymphocytes Monocytes Nucleated RBCs # 0.00 Platelet Estimate Hypochromasia Morphology Comment Sodium 143 Potassium 4.3 Chloride 107 Carbon Dioxide 25 Anion Gap 15.3 H BUN 15 Creatinine 0.70 GFR Calculation 81 BUN/Creatinine Ratio 21.00 H Glucose 125 H Calculated Osmolality 286.0 Calcium 8.1 L Urine Color Urine Appearance Urine pH Ur Specific [place] Urine Protein Urine Glucose (UA) Urine Ketones Urine Blood Urine Nitrate Urine Bilirubin Urine Urobilinogen Urine Leukocytes Urine RBC Urine WBC Urine WBC Clumps Amorphous Crystals Urine Bacteria Urine Mucus Ur Culture Indicated? - EKG EKG results: interpreted by me I, Benny Machado MD, personally performed the services described in this documentation, ascribed by Yanely Simpson RN in my presence, and it is both accurate and complete [id number] .
[2016-07-13] MEDS: DOCUSATE SODIUM 100 MG CAPSULE PO SCH (20:06)
[2016-07-14] MEDS: TEMAZEPAM 15 MG CAPSULE PO PRN ×2 (00:14→20:55)
[2016-07-14] MEDS: MORPHINE 2 MG/1 ML SYRINGE IV PRN ×4 (00:14→20:55)
[2016-07-14] MEDS: LACTATED RINGERS 1,000 ML IV SCH (01:01)
[2016-07-14] MEDS: KETOROLAC 30 MG/1 ML VIAL IV SCH (04:20)
[2016-07-14 05:24] LABS: Basophils % 0.2 % (0.0-0.8); Eosinophils # 0.4 10*3/uL (0.0-0.87); Eosinophils % 4.3 % (0.00-10.9); Hematocrit 29.3 VOL% (35.7-47.0); Hemoglobin 9.3 GM/DL (12.0-16.0); Immature Granulocytes % 0.2 %; Immature Granulocytes Absolute 0.02 #; Lymphocytes # 1.4 10*3/uL (1.4-4.0); Lymphocytes % 14.8 % (21.3-54.2); Mean Corpuscular HGB Conc 31.7 GM/DL (32-36); Mean Corpuscular Hemoglobin 27 PG (27-34); Mean Corpuscular Volume 86.2 FL (87-102); Mean Platelet Volume 11.2 FL (9.6-12.0); Monocytes # 0.9 10*3/uL (0.11-0.8); Neutrophils # 6.7 10*3/uL (1.4-7.4); Neutrophils % 71.5 % (38.7-73.9); Platelet Count 148 10*3/uL (130-400); Red Cell Distribution Width 14.3 % (9.3-17.3); White Blood Count 9.4 10*3/uL (4.5-13.71)
[2016-07-14 06:03] LABS: Osmolality,Calculated 289.6 MOS/KG (273-304); Potassium 3.9 MMOL/L (3.5-5.1)
--- NOTE | 2016-07-14 07:14 | EKG Report ---
Stationary ECG Study [facility] Test Date: 07/14/2016 7:13:49 AM Pat Name: DIANA PINO Department: Room: 317 Gender: F Doorkeeper: KRYSTIN : 1950 Requested by: Liyah Machado Order Number: [id number] Shefali MD: LIYAH MACHADO Intervals [place] Rate: 55 P: 34 [place]: 112 QRS: 60 QRSD: 94 T: 61 QT: 425 QTc: 414 Interpretive Statements SINUS RHYTHM WITH SHORT [place] INTERVAL LEFT VENTRICULAR HYPERTROPHY AND ST-T CHANGE Electronically Signed On 07-14-16 09:58:49 RESIDENTIAL DESIGNER by LIYAH MACHADO [id number]
--- NOTE | 2016-07-14 07:22 | Orthopedic Progress Note ---
Assessment and Plan (1) Closed intertrochanteric fracture of left hip Status: Acute Current Visit: Yes Qualifiers: Encounter type: initial encounter Qualified Code(s): S72.142A - Displaced intertrochanteric fracture of left femur, initial encounter for closed fracture Orthopedics - Subjective Interval history: Mrs Ortiz is still sore. LLE no deformity. Dressing dry. nv ok. Will mobilize with therapy. Discharge planning either TMR or Darren swing bed. Exam - Constitutional Vitals: Period Temp Pulse Resp BP Sys/Gurrola Pulse Ox Last 24 Hr 97.9 F-99.9 F 59-82 15-18 105-136/41-86 95-100 Results - Labs CBC & BMP: 07/14/16 05:09 07/14/16 05:09
--- NOTE | 2016-07-14 08:32 | Cardiology Progress Note ---
Calvin Goodwin Vanessa, RN, am scribing for, and in the presence of, Benny Machado MD 08:32. Assessment and Plan - Time spent with patient Time spent with patient: Less than 30 minutes (1) Closed intertrochanteric fracture of left hip Status: Acute Assessment and plan: POD #1. No cardiac or anginal complaints. N/V resolved this AM. Current Visit: Yes Qualifiers: Encounter type: initial encounter Qualified Code(s): S72.142A - Displaced intertrochanteric fracture of left femur, initial encounter for closed fracture (2) Heart failure, diastolic, acute on chronic Status: Acute Current Visit: Yes (3) Anxiety and depression Status: Acute Current Visit: Yes (4) Mitral regurgitation Status: Acute Current Visit: Yes (5) Left ventricular hypertrophy by electrocardiogram Status: Acute Assessment and plan: EKG shows no significant change postop Current Visit: Yes (6) Hypertension Status: Chronic Current Visit: Yes Qualifiers: Hypertension type: essential hypertension Qualified Code(s): I10 - Essential (primary) hypertension (7) Osteoarthritis Status: Acute Current Visit: Yes Cardiology - PN: Subj Interval history: Appears more comfortable this AM. No further N/V today. Denies CP, SOB. Vitals stable with BP 134/53, HR 60's. EKG this AM with sinus rhythm, slightly bradycardic in 50's at times, but no acute changes from previously. Post op H/H with decrease to 9.3 & 29.3. K+ 3.9, Na+ 146. Afebrile, WBC normal today. She appears a little more comfortable this morning to me. She is not complaining of dyspnea orthopnea and chest discomfort. EKG shows changes consistent with LVH with strain but no change from previously. Her counts are stable and we will continue following. Exam (Progress Note) - Constitutional Vitals: Period Temp Pulse Resp BP Sys/[place] Pulse Ox Last 24 Hr 97.9 F-99.9 F 59-82 15-18 105-136/41-86 95-100 Exam: General: Present: no acute distress Neck: Present: Midline Trachea, No JVD/HJR Cardiac: Present: Reg Rate and Rhythm, Audible Murmur, Systolic Murmur (murmur consistent with mitral insufficiency. Grade 3 murmur) Lungs: Present: Clear Ascult./Percussion, No Wheeze, Rales, Rhonchi Neuro: Present: Grossly Intact. Absent: Resting Tremor Abdomen: Present: Soft, Active Bowel Sounds Absent: firm, tender, distended Skin: Present: Clear Absent: rash, lesion Musculoskeletal: Present: No Fluid Collection. Absent: Normal Range of Motion Extremities: Present: No Clubbing, No Cyanosis, No Edema, Normal Upper Extr. Pulses (3+ bilaterally), Normal Lower Extr. Pulses (3+ bilaterally), Capillary Refill (normal) (left hip sx dsg dry, intact) Result/EKG - Labs CBC & BMP: 07/14/16 05:09 07/14/16 05:09 Lab Results: I have reviewed the past 24 hour labs Labs: Laboratory Results - last 24 hr 07/14/16 07/14/16 05:09 05:09 WBC 9.4 D RBC 3.40 L Hgb 9.3 L Hct 29.3 L MCV 86.2 L MCH 27 MCHC 31.7 L RDW 14.3 Plt Count 148 D MPV 11.2 Neut % (Auto) 71.5 Lymph % (Auto) 14.8 L [place] % (Auto) 9.0 Eos % (Auto) 4.3 Baso % (Auto) 0.2 Neut # (Auto) 6.7 Lymph # (Auto) 1.4 [place] # (Auto) 0.9 H Eos # (Auto) 0.4 Baso # (Auto) 0.0 Immature Gran % 0.2 Nucleated RBC % 0.0 Immature Gran # 0.02 Nucleated RBCs # 0.00 Sodium 146 H Potassium 3.9 Chloride 110 H Carbon Dioxide 29 Anion Gap 10.9 BUN 13 Creatinine 0.70 GFR Calculation 81 BUN/Creatinine Ratio 18.00 Glucose 99 Calculated Osmolality 289.6 Calcium 8.0 L - EKG EKG results: interpreted by me EKG shows: sinus rhythm (rate 60's) I, Benny Machado MD, personally performed the services described in this documentation, ascribed by Yanely Simpson RN in my presence, and it is both accurate and complete 832 .
[2016-07-14] MEDS: FUROSEMIDE 20 MG TABLET PO SCH (09:38)
[2016-07-14] MEDS: DOCUSATE SODIUM 100 MG CAPSULE PO SCH ×2 (09:38→20:55)
[2016-07-14] MEDS: SPIRONOLACTONE 25 MG TABLET PO SCH (09:39)
[2016-07-14] MEDS: CARVEDILOL 3.125 MG TABLET PO SCH ×2 (09:40→20:55)
[2016-07-14] MEDS: FONDAPARINUX 2.5 MG/0.5 ML SYRINGE SUBCUT SCH (09:40)
[2016-07-14] MEDS: ONDANSETRON 4 MG/2 ML VIAL IV PRN ×2 (10:03→14:42)
--- NOTE | 2016-07-14 10:09 | Hospitalist Progress Note ---
Assessment and Plan (1) Hypertension Status: Chronic Current Visit: Yes Qualifiers: Hypertension type: essential hypertension Qualified Code(s): I10 - Essential (primary) hypertension (2) Closed intertrochanteric fracture of left hip Status: Acute Assessment and plan: Surgery 07/13 Current Visit: Yes Qualifiers: Encounter type: initial encounter Qualified Code(s): S72.142A - Displaced intertrochanteric fracture of left femur, initial encounter for closed fracture Hospitalist: Subjective Interval history: 66 yo female non-syncopal fall with left hip fracture repaired 07/13. Stable post-op course. Exam - Constitutional Vitals: Period Temp Pulse Resp BP Sys/Gurrola Pulse Ox Last 24 Hr 97.9 F-99.9 F 56-74 15-18 105-136/41-86 95-100 General appearance: normal weight - Respiratory Respiratory exam: Present: clear to auscultation bilaterally - Cardiovascular Cardiovascular exam: Present: regular rate and rhythm, systolic murmur (3/6 mitral regurgitation) - GI/Abdominal GI/Abdominal exam: Present: normal bowel sounds. Absent: tenderness - Neurological Exam Neurological exam: Present: alert, oriented X3 Results - Labs CBC & BMP: 07/14/16 05:09 07/14/16 05:09 Specialty Discharge - Follow Up or Referrals
[2016-07-14] MEDS ORDERED: oxyCODONE/ACETAMINOPHEN 5-325 MG TABLET ONE (11:52)
[2016-07-15] MEDS: MORPHINE 2 MG/1 ML SYRINGE IV PRN (03:22)
[2016-07-15 06:35] LABS: Basophils % 0.1 % (0.0-0.8); Eosinophils # 0.4 10*3/uL (0.0-0.87); Eosinophils % 3.7 % (0.00-10.9); Hematocrit 27.6 VOL% (35.7-47.0); Hemoglobin 8.7 GM/DL (12.0-16.0); Immature Granulocytes % 0.3 %; Immature Granulocytes Absolute 0.03 #; Lymphocytes # 1.4 10*3/uL (1.4-4.0); Lymphocytes % 15.1 % (21.3-54.2); Mean Corpuscular HGB Conc 31.5 GM/DL (32-36); Mean Corpuscular Hemoglobin 27 PG (27-34); Mean Corpuscular Volume 86.3 FL (87-102); Monocytes # 0.8 10*3/uL (0.11-0.8); Monocytes % 8.5 % (1.7-12.7); Neutrophils # 6.8 10*3/uL (1.4-7.4); Neutrophils % 72.3 % (38.7-73.9); Platelet Count 171 10*3/uL (130-400); Red Cell Distribution Width 14.3 % (9.3-17.3); White Blood Count 9.4 10*3/uL (4.5-13.71)
--- NOTE | 2016-07-15 07:26 | Discharge Summary ---
Hospital Course - Hospital Course Hospital Course: Mrs Ortiz was admitted after falling and sustaining a left intertrochanteric hip fracture. The patient underwent a perioperative medical and cardiology consults. She then underwent a uncomplicated open reduction fixation of her left hip. She received perioperative DVT and antimicrobial prophylaxis. She was initiated physical therapy. She was slow to progress with therapy. Her dressing is clean, dry and intact. NV ok. Diagnosis - Discharge Diagnosis (1) Closed intertrochanteric fracture of left hip Status: Acute Specialty Discharge - Follow Up or Referrals Follow up with: Jose Soto Jr., MD [Physician] - 08/11/16 2:30 pm Discharge Plan - Discharge Data Disposition: Disch/Xfer to Snf Discharge Diet: other (cardiac) Activity: ambulate only with your walker Hygiene: may shower Weight Bearing at Discharge: partial weight bearing (30 pounds) Driving: not until seen by doctor - Discharge Medications New HYDROcodone/ACETAMIN 7.5-325 [Mck[place] 7.5-325] 2 tablet PO Q4H PRN #0 tablet PRN Reason: Moderate Pain unrelieved by 1 Docusate Sodium Cap [Colace Cap] 100 mg PO BID capsule Fondaparinux [Arixtra] 2.5 mg SUBCUT Q24H syringe HYDROcodone/ACETAMIN 7.5-325 [Mck[place] 7.5-325] 1 tablet PO Q4H PRN #0 tablet PRN Reason: Pain Moderate (4-7) Continue Acetaminophen Tab [Tylenol Tab] 325 mg PO BID tablet Aspirin Chew Tab 81 mg PO DAILY tablet Captopril [Capoten] 6.25 mg PO BID #60 tablet Carvedilol [Coreg] 3.125 mg PO BID #60 tablet Furosemide Tab [Lasix Tab] 20 mg PO DAILY #30 tablet Spironolactone [Aldactone] 12.5 mg PO DAILY #30 tablet - Follow Up or Referral Follow Up: Jose Soto Jr., MD [Physician] - 08/11/16 2:30 pm - Forms/Instructions Instructions: Open Reduction and Internal Fixation of a Hip Fracture (DC) Additional Discharge Instructions: Daily dry dressing changes. Arrange for walker and bedside commode for home use. Wear L[place] hose for 1 month. Follow-up appointment in 4 weeks. Discontinue leni and Steri-Strip wound on 2016. Stop Arixtra when discharged from swing bed. Prescription for Mckinnon 7.5 with 30 tablets was written. 30# PWB LLE. Exam - Constitutional Vitals: Period Temp Pulse Resp BP Sys/Gurrola Pulse Ox Last 24 Hr 97.7 F-100.0 F 56-77 15-20 108-151/47-66 93-100 Discharge Results Procedures and tests throughout hospitalization: Pending Orders 07/16/16 04:00 Comp Blood Count Auto Diff IN AM Labs on day of discharge: Labs from last 24 hours 07/15/16 05:02 WBC 9.4 RBC 3.20 L Hgb 8.7 L Hct 27.6 L MCV 86.3 L MCH 27 MCHC 31.5 L RDW 14.3 Plt Count 171 MPV 12.0 Neut % (Auto) 72.3 Lymph % (Auto) 15.1 L [place] % (Auto) 8.5 Eos % (Auto) 3.7 Baso % (Auto) 0.1 Neut # (Auto) 6.8 Lymph # (Auto) 1.4 [place] # (Auto) 0.8 Eos # (Auto) 0.4 Baso # (Auto) 0.0 Immature Gran % 0.3 Nucleated RBC % 0.0 Immature Gran # 0.03 Nucleated RBCs # 0.00 DS: Provider Date of admission: 07/11/16 21:09 Primary care physician: Janice Rouse Attending physician on admission: Jose Soto Jr., Consults: 07/11/16 21:48 Consult to Anesthesiology [CONS] Routine Consulting Provider: Reason for Anesthesiology: Pre-op Clearance Consult to Physician [CONS] Routine Comment: perioperative medical management trainee Provider: Lalo Goodman Consulting Provider Notified: Yes Person Notified: dr goodman Date Notified: 07/12/16 Time Notified: 01:06 Consult Notification Comment: spoke with dr goodman 07/11/16 21:53 Consult to Pharmacy [CONS] Routine Reason for Pharmacy Consult: Adjust Meds Renal Funct 07/12/16 06:04 Consult to Physician [CONS] Routine Comment: hip fx, hx MR, worsening SOB Consulting Provider: Brady Kiser Consulting Provider Notified: Yes When should Consulting Provider be notified: Now Person Notified: dr rodriges Date Notified: 07/12/16 Time Notified: 06:20 Consult Notification Comment: spoke with dr rodriges 07/13/16 09:48 Consult to Case Mgmt/Social Srvs [CONS] Routine Reason for Case Mgmt/Social Srvs: Rehab Home Health Equipment Consult Comment: Bedside Commode, CPM, Walker Consult to Occupational Therapy [CONS] Routine Reason for Occupational Therapy: Evaluate and Treat Consult Comment: ADL's Consult to Physical Therapy [CONS] Routine Reason for Physical Therapy: Evaluate and Treat Gait Training Start Therapy: As Tolerated Consult Comment: 30% PWB lle Discharging clinician: Jose Soto Jr., Expected date of discharge: 07/18/16
--- NOTE | 2016-07-15 07:48 | Orthopedic Progress Note ---
Assessment and Plan (1) Closed intertrochanteric fracture of left hip Status: Acute Current Visit: Yes Qualifiers: Encounter type: initial encounter Qualified Code(s): S72.142A - Displaced intertrochanteric fracture of left femur, initial encounter for closed fracture Orthopedics - Subjective Interval history: Mrs Ortiz is slow to mobilize. She just stood up yesterday. Dressing dry. NV ok. Continue therapy. Discharge to swing bed when bed available. Exam - Constitutional Vitals: Period Temp Pulse Resp BP Sys/Gurrola Pulse Ox Last 24 Hr 97.7 F-100.0 F 56-77 15-20 108-151/47-66 93-100 Results - Labs CBC & BMP: 07/15/16 05:02 07/14/16 05:09 Specialty Discharge - Follow Up or Referrals
[2016-07-15] MEDS: CARVEDILOL 3.125 MG TABLET PO SCH ×2 (09:13→21:15)
[2016-07-15] MEDS: SPIRONOLACTONE 25 MG TABLET PO SCH (09:13)
[2016-07-15] MEDS: FUROSEMIDE 20 MG TABLET PO SCH (09:13)
[2016-07-15] MEDS: FONDAPARINUX 2.5 MG/0.5 ML SYRINGE SUBCUT SCH (09:13)
[2016-07-15] MEDS: DOCUSATE SODIUM 100 MG CAPSULE PO SCH ×2 (09:13→21:15)
--- NOTE | 2016-07-15 16:12 | Cardiology Progress Note ---
Calvin Goodwin Vanessa RN, am scribing for, and in the presence of, Benny Machado MD 16:11. Assessment and Plan - Time spent with patient Time spent with patient: Less than 30 minutes (1) Closed intertrochanteric fracture of left hip Status: Acute Assessment and plan: POD #2. No cardiac or anginal complaints. No further N/V. Current Visit: Yes Qualifiers: Encounter type: initial encounter Qualified Code(s): S72.142A - Displaced intertrochanteric fracture of left femur, initial encounter for closed fracture (2) Left ventricular hypertrophy by electrocardiogram Status: Acute Assessment and plan: No significant change in EKG post operatively. Current Visit: Yes (3) Heart failure, diastolic, acute on chronic Status: Acute Current Visit: Yes (4) Anxiety and depression Status: Acute Current Visit: Yes (5) Mitral regurgitation Status: Acute Current Visit: Yes (6) Hypertension Status: Chronic Current Visit: Yes Qualifiers: Hypertension type: essential hypertension Qualified Code(s): I10 - Essential (primary) hypertension (7) Osteoarthritis Status: Acute Current Visit: Yes Cardiology - PN: Subj Interval history: Sleeping soundly this morning. No distress noted and appears more comfortable. No further N/V. No CP, SOB, other cardiac complaints. Left hip sx dsg d/i without hematoma, bleeding. Febrile overnight 100.0 F. BP 118/52. HR 70's, regular. Planned for tentative transfer to swing bed if bed available later today for further rehabilitation. Labs reviewed: H/H 8.7 & 27.6, WBC 9.4 Ms. Ortiz is clinically stable. She is hoping to go to a swing bed today. She certainly is a reasonable transfer from our standpoint. We will continue following if she is here. I have discussed in detail the particulars of this case and I have examined the patient and reviewed the patient's chart both current and old. I was directly involved in this patient's evaluation and management I completely agree with Yanely Simpson regarding this patient's evaluation and treatment plan Exam (Progress Note) - Constitutional Vitals: Period Temp Pulse Resp BP Sys/Gurrola Pulse Ox Last 24 Hr 97.7 F-100.0 F 61-77 15-20 115-151/47-66 93-100 Exam: General: Present: no acute distress Neck: Present: Midline Trachea, No JVD/HJR Cardiac: Present: Reg Rate and Rhythm, Audible Murmur, Systolic Murmur (murmur consistent with mitral insufficiency. Grade 3 murmur) Lungs: Present: Clear Ascult./Percussion, No Wheeze, Rales, Rhonchi Neuro: Present: Grossly Intact. Absent: Resting Tremor Abdomen: Present: Soft, Active Bowel Sounds Absent: firm, tender, distended Skin: Present: Clear Absent: rash, lesion Musculoskeletal: Present: No Fluid Collection. Absent: Normal Range of Motion Extremities: Present: No Clubbing, No Cyanosis, No Edema, Normal Upper Extr. Pulses (3+ bilaterally), Normal Lower Extr. Pulses (3+ bilaterally), Capillary Refill (normal) (left hip sx dsg dry, intact) Result/EKG - Labs CBC & BMP: 07/15/16 05:02 07/14/16 05:09 Lab Results: I have reviewed the past 24 hour labs Labs: Laboratory Results - last 24 hr 07/15/16 05:02 WBC 9.4 RBC 3.20 L Hgb 8.7 L Hct 27.6 L MCV 86.3 L MCH 27 MCHC 31.5 L RDW 14.3 Plt Count 171 MPV 12.0 Neut % (Auto) 72.3 Lymph % (Auto) 15.1 L [place] % (Auto) 8.5 Eos % (Auto) 3.7 Baso % (Auto) 0.1 Neut # (Auto) 6.8 Lymph # (Auto) 1.4 [place] # (Auto) 0.8 Eos # (Auto) 0.4 Baso # (Auto) 0.0 Immature Gran % 0.3 Nucleated RBC % 0.0 Immature Gran # 0.03 Nucleated RBCs # 0.00 - EKG EKG results: interpreted by me, no acute changes (pulse 80's, regular) Specialty Discharge - Follow Up or Referrals Follow up with: Jose Soto Jr., MD [Physician] - 08/11/16 2:30 pm Carter Goodwin Wesley, MD, personally performed the services described in this documentation, ascribed by Yanely Simpson RN in my presence, and it is both accurate and complete 611 .
--- NOTE | 2016-07-15 19:28 | Hospitalist Progress Note ---
Assessment and Plan (1) Fracture of femoral neck, left Status: Acute Assessment and plan: Status post femoral neck fracture repair. Patient's been medically stable. No other recommendations at this time we'll sign off. Current Visit: Yes Hospitalist: Subjective Interval history: The patient is resting doing well. No acute changes. Awaiting for rehabilitation on next week. Nothing further that at this time please call if needed. We'll sign off. Exam - Constitutional Vitals: Period Temp Pulse Resp BP Sys/Gurrola Pulse Ox Last 24 Hr 97.5 F-100.0 F 60-77 16-20 113-151/49-66 93-100 - Head Head exam: Present: normal inspection - ENT ENT exam: Present: normal exam - Respiratory Respiratory exam: Present: clear to auscultation bilaterally - Cardiovascular Cardiovascular exam: Present: regular rate and rhythm - GI/Abdominal GI/Abdominal exam: Present: normal bowel sounds - Neurological Exam Neurological exam: Present: alert, oriented X3 Results - Labs CBC & BMP: 07/15/16 05:02 07/14/16 05:09 Specialty Discharge - Follow Up or Referrals Follow up with: Jose Soto Jr., MD [Physician] - 08/11/16 2:30 pm
[2016-07-16 03:37] LABS: Basophils % 0.3 % (0.0-0.8); Eosinophils # 0.4 10*3/uL (0.0-0.87); Hematocrit 27.7 VOL% (35.7-47.0); Hemoglobin 8.9 GM/DL (12.0-16.0); Immature Granulocytes % 0.3 %; Immature Granulocytes Absolute 0.02 #; Lymphocytes # 1.2 10*3/uL (1.4-4.0); Lymphocytes % 15.8 % (21.3-54.2); Mean Corpuscular HGB Conc 32.1 GM/DL (32-36); Mean Corpuscular Hemoglobin 28 PG (27-34); Mean Corpuscular Volume 85.5 FL (87-102); Mean Platelet Volume 11.2 FL (9.6-12.0); Monocytes # 0.5 10*3/uL (0.11-0.8); Monocytes % 6.9 % (1.7-12.7); Neutrophils # 5.6 10*3/uL (1.4-7.4); Neutrophils % 71.7 % (38.7-73.9); Platelet Count 198 10*3/uL (130-400); Red Blood Count 3.24 10*6/uL (3.8-5.5); White Blood Count 7.9 10*3/uL (4.5-13.71)
[2016-07-16] MEDS: SPIRONOLACTONE 25 MG TABLET PO SCH (09:09)
[2016-07-16] MEDS: CARVEDILOL 3.125 MG TABLET PO SCH ×2 (09:10→20:56)
[2016-07-16] MEDS: FUROSEMIDE 20 MG TABLET PO SCH (09:10)
[2016-07-16] MEDS: FONDAPARINUX 2.5 MG/0.5 ML SYRINGE SUBCUT SCH (09:10)
[2016-07-16] MEDS: DOCUSATE SODIUM 100 MG CAPSULE PO SCH ×2 (09:10→20:56)
--- NOTE | 2016-07-16 09:43 | Orthopedic Progress Note ---
Assessment and Plan (1) Closed intertrochanteric fracture of left hip Status: Acute Assessment and plan: Continue PT Discharge to swing bed Monday Current Visit: Yes Qualifiers: Encounter type: initial encounter Qualified Code(s): S72.142A - Displaced intertrochanteric fracture of left femur, initial encounter for closed fracture Orthopedics - Subjective Interval history: Patient is sitting in the bedside chair this morning. She is still quite slow to advance with therapy. On exam her dressings clean and dry Exam - Constitutional Vitals: Period Temp Pulse Resp BP Sys/Gurrola Pulse Ox Last 24 Hr 98.0 F-99.0 F 60-68 16-18 113-138/49-55 93-97 Results - Labs CBC & BMP: 07/16/16 03:21 07/14/16 05:09 Specialty Discharge - Follow Up or Referrals Follow up with: Jose Soto Jr., MD [Physician] - 08/11/16 2:30 pm
--- NOTE | 2016-07-16 11:56 | Cardiology Progress Note ---
Assessment and Plan (1) Closed intertrochanteric fracture of left hip Status: Acute Assessment and plan: POD #2. No cardiac or anginal complaints. No further N/V. Current Visit: Yes Qualifiers: Encounter type: initial encounter Qualified Code(s): S72.142A - Displaced intertrochanteric fracture of left femur, initial encounter for closed fracture (2) Left ventricular hypertrophy by electrocardiogram Status: Acute Assessment and plan: No significant change in EKG post operatively. Current Visit: Yes (3) Heart failure, diastolic, acute on chronic Status: Acute Assessment and plan: 07/16: She continues stable without evidence of orthopnea or dyspnea with exertion. Current Visit: Yes (4) Anxiety and depression Status: Acute Current Visit: Yes (5) Mitral regurgitation Status: Acute Current Visit: Yes (6) Hypertension Status: Chronic Current Visit: Yes Qualifiers: Hypertension type: essential hypertension Qualified Code(s): I10 - Essential (primary) hypertension (7) Osteoarthritis Status: Acute Current Visit: Yes Cardiology - PN: Subj Interval history: Patient is stable and doing well. She is moving about the room. We are continuing to increase her activity. Likely will be transferred to swing bed over the first part of the week. Exam (Progress Note) - Constitutional Vitals: Period Temp Pulse Resp BP Sys/Gurrola Pulse Ox Last 24 Hr 98.0 F-99.0 F 60-68 16-18 113-138/49-55 93-97 Exam: General: Present: no acute distress Neck: Present: Midline Trachea, No JVD/HJR Cardiac: Present: Reg Rate and Rhythm, Audible Murmur, Systolic Murmur (murmur consistent with mitral insufficiency. Grade 3 murmur) Lungs: Present: Clear Ascult./Percussion, No Wheeze, Rales, Rhonchi Neuro: Present: Grossly Intact. Absent: Resting Tremor Abdomen: Present: Soft, Active Bowel Sounds Absent: firm, tender, distended Skin: Present: Clear Absent: rash, lesion Musculoskeletal: Present: No Fluid Collection. Absent: Normal Range of Motion Extremities: Present: No Clubbing, No Cyanosis, No Edema, Normal Upper Extr. Pulses (3+ bilaterally), Normal Lower Extr. Pulses (3+ bilaterally), Capillary Refill (normal) (left hip sx dsg dry, intact) Result/EKG - Labs CBC & BMP: 07/16/16 03:21 07/14/16 05:09 Labs: Laboratory Results - last 24 hr 07/16/16 03:21 WBC 7.9 RBC 3.24 L Hgb 8.9 L Hct 27.7 L MCV 85.5 L MCH 28 MCHC 32.1 RDW 14.0 Plt Count 198 MPV 11.2 Neut % (Auto) 71.7 Lymph % (Auto) 15.8 L [place] % (Auto) 6.9 Eos % (Auto) 5.0 Baso % (Auto) 0.3 Neut # (Auto) 5.6 Lymph # (Auto) 1.2 L [place] # (Auto) 0.5 Eos # (Auto) 0.4 Baso # (Auto) 0.0 Immature Gran % 0.3 Nucleated RBC % 0.0 Immature Gran # 0.02 Nucleated RBCs # 0.00 Specialty Discharge - Follow Up or Referrals Follow up with: Jose Soto Jr., MD [Physician] - 08/11/16 2:30 pm
[2016-07-16] MEDS: TEMAZEPAM 15 MG CAPSULE PO PRN (23:02)
[2016-07-17] MEDS: MORPHINE 2 MG/1 ML SYRINGE IV PRN ×4 (05:48→20:38)
[2016-07-17] MEDS: ONDANSETRON 4 MG/2 ML VIAL IV PRN ×2 (07:09→11:19)
--- NOTE | 2016-07-17 08:35 | Orthopedic Progress Note ---
Assessment and Plan (1) Closed intertrochanteric fracture of left hip Status: Acute Assessment and plan: Continue PT Discharge to swing bed Monday Current Visit: Yes Qualifiers: Encounter type: initial encounter Qualified Code(s): S72.142A - Displaced intertrochanteric fracture of left femur, initial encounter for closed fracture Orthopedics - Subjective Interval history: Pt still c/o L hip pain. Awaiting PT today c/d/i Exam - Constitutional Vitals: Period Temp Pulse Resp BP Sys/Gurrola Pulse Ox Last 24 Hr 97.5 F-98.7 F 53-63 16-18 112-155/44-62 95-99 Results - Labs CBC & BMP: 07/16/16 03:21 07/14/16 05:09 Specialty Discharge - Follow Up or Referrals Follow up with: Jose Soto Jr., MD [Physician] - 08/11/16 2:30 pm
[2016-07-17] MEDS: FONDAPARINUX 2.5 MG/0.5 ML SYRINGE SUBCUT SCH (09:28)
[2016-07-17] MEDS: SPIRONOLACTONE 25 MG TABLET PO SCH (09:28)
[2016-07-17] MEDS: DOCUSATE SODIUM 100 MG CAPSULE PO SCH ×2 (09:29→20:38)
[2016-07-17] MEDS: FUROSEMIDE 20 MG TABLET PO SCH (09:29)
[2016-07-17] MEDS: CARVEDILOL 3.125 MG TABLET PO SCH ×2 (09:29→20:38)
--- NOTE | 2016-07-17 11:26 | Cardiology Progress Note ---
Assessment and Plan (1) Closed intertrochanteric fracture of left hip Status: Acute Assessment and plan: POD #2. No cardiac or anginal complaints. No further N/V. 07/17: Patient is having a fair amount of pain but she is ambulating and is on course to continue recovering. Current Visit: Yes Qualifiers: Encounter type: initial encounter Qualified Code(s): S72.142A - Displaced intertrochanteric fracture of left femur, initial encounter for closed fracture (2) Left ventricular hypertrophy by electrocardiogram Status: Acute Assessment and plan: No significant change in EKG post operatively. 07/17: She is stable doing well without specific complaints this morning related to shortness of breath or chest discomfort. Current Visit: Yes (3) Heart failure, diastolic, acute on chronic Status: Acute Assessment and plan: 07/16: She continues stable without evidence of orthopnea or dyspnea with exertion. Current Visit: Yes (4) Anxiety and depression Status: Acute Current Visit: Yes (5) Mitral regurgitation Status: Acute Assessment and plan: 07/17: Murmur is unchanged from her prior evaluation. Current Visit: Yes (6) Hypertension Status: Chronic Current Visit: Yes Qualifiers: Hypertension type: essential hypertension Qualified Code(s): I10 - Essential (primary) hypertension (7) Osteoarthritis Status: Acute Current Visit: Yes Cardiology - PN: Subj Interval history: Patient complaint discomfort this morning at the hip where she had surgery. She is been up and is also her and is getting pain medications. Otherwise she is without complaints. Exam (Progress Note) - Constitutional Vitals: Period Temp Pulse Resp BP Sys/Gurrola Pulse Ox Last 24 Hr 97.5 F-98.7 F 53-86 16-18 112-155/44-62 95-99 Exam: General: Present: no acute distress Neck: Present: Midline Trachea, No JVD/HJR Cardiac: Present: Reg Rate and Rhythm, Audible Murmur, Systolic Murmur (murmur consistent with mitral insufficiency. Grade 3 murmur) Lungs: Present: Clear Ascult./Percussion, No Wheeze, Rales, Rhonchi Neuro: Present: Grossly Intact. Absent: Resting Tremor Abdomen: Present: Soft, Active Bowel Sounds Absent: firm, tender, distended Skin: Present: Clear Absent: rash, lesion Musculoskeletal: Present: No Fluid Collection. Absent: Normal Range of Motion Extremities: Present: No Clubbing, No Cyanosis, No Edema, Normal Upper Extr. Pulses (3+ bilaterally), Normal Lower Extr. Pulses (3+ bilaterally), Capillary Refill (normal) (left hip sx dsg dry, intact) Result/EKG - Labs CBC & BMP: 07/16/16 03:21 07/14/16 05:09 Specialty Discharge - Follow Up or Referrals Follow up with: Jose Soto Jr., MD [Physician] - 08/11/16 2:30 pm
[2016-07-18] MEDS: TEMAZEPAM 15 MG CAPSULE PO PRN (01:11)
[2016-07-18 07:47] VITALS: BP 114/57
[2016-07-18] MEDS: FUROSEMIDE 20 MG TABLET PO SCH (08:23)
[2016-07-18] MEDS: FONDAPARINUX 2.5 MG/0.5 ML SYRINGE SUBCUT SCH (08:23)
[2016-07-18] MEDS: SPIRONOLACTONE 25 MG TABLET PO SCH (08:23)
[2016-07-18] MEDS: DOCUSATE SODIUM 100 MG CAPSULE PO SCH (08:23)
[2016-07-18] MEDS: CARVEDILOL 3.125 MG TABLET PO SCH (08:23)
--- NOTE | 2016-07-18 08:24 | Orthopedic Progress Note ---
Assessment and Plan (1) Closed intertrochanteric fracture of left hip Status: Acute Current Visit: Yes Qualifiers: Encounter type: initial encounter Qualified Code(s): S72.142A - Displaced intertrochanteric fracture of left femur, initial encounter for closed fracture Orthopedics - Subjective Interval history: Comfortable this am. Was sore yesterday. Slept last night. Dressing dry. NV ok. Continue to mobilize. To swing bed when bed available. Exam - Constitutional Vitals: Period Temp Pulse Resp BP Sys/Gurrola Pulse Ox Last 24 Hr 96.3 F-99.1 F 60-67 18-20 114-150/46-57 94-100 Results - Labs CBC & BMP: 07/16/16 03:21 07/14/16 05:09 Specialty Discharge - Follow Up or Referrals Follow up with: Jose Soto Jr., MD [Physician] - 08/11/16 2:30 pm
== END 2016-07-18 10:56 | DRG 481 ==
LOC: EDUNIT# → EDBD → N.ED 19:17 → N.EDINP 21:09 → N.3E 21:35
PROVIDERS: ADMIT Orthopaedic Surgery; ATTEND Orthopaedic Surgery

== ENCOUNTER 2018-08-14 12:52 | Observation (INO) ==
[2018-08-14] MEDS ORDERED: ONDANSETRON 4 MG/2 ML VIAL IV PRN (15:37)
[2018-08-14] MEDS ORDERED: ZALEPLON 5 MG CAPSULE PO PRN (15:37)
[2018-08-14] MEDS ORDERED: ACETAMINOPHEN 325 MG TABLET PO PRN (15:37)
[2018-08-14 16:11] LABS: Basophils % 0.1 % (0.0-0.8); Hematocrit 38.5 VOL% (35.7-47.0); Hemoglobin 12.7 GM/DL (12.0-16.0); Immature Granulocytes % 0.6 %; Immature Granulocytes Absolute 0.07 #; Lymphocytes # 0.6 10*3/uL (1.4-4.0); Lymphocytes % 5.3 % (21.3-54.2); Mean Corpuscular Hemoglobin 30 PG (27-34); Mean Corpuscular Volume 92.1 FL (87-102); Mean Platelet Volume 11.4 FL (9.6-12.0); Monocytes # 0.7 10*3/uL (0.11-0.8); Monocytes % 6.2 % (1.7-12.7); Neutrophils # 9.7 10*3/uL (1.4-7.4); Neutrophils % 87.8 % (38.7-73.9); Platelet Count 186 T/CUMM (130-400); Red Blood Count 4.18 MC/CUMM (3.8-5.5); Red Cell Distribution Width 12.9 % (9.3-17.3)
[2018-08-14 16:28] LABS: Albumin 3.5 G/DL (3.4-5.0); Bilirubin,Total 0.8 MG/DL (0.2-1.0); Calcium 8.8 MG/DL (8.5-10.1); Osmolality,Calculated 282.4 MOS/KG (273-304); Potassium 3.7 MMOL/L (3.5-5.1)
[2018-08-14] MEDS: FUROSEMIDE 20 MG TABLET PO SCH (17:06)
[2018-08-14] MEDS: methylPREDNISolone SOD SUC 40 MG/1 ML VIAL IV SCH (17:06)
[2018-08-14] MEDS: CARVEDILOL 3.125 MG TABLET PO SCH (17:06)
[2018-08-14 18:00] LABS: Apearance,Urine CLEAR (Clear); Bacteria,Urine Occasional /HPF (Few); Bilirubin,Urine Negative (Negative); Blood, Urine Negative (Negative); Glucose,Urine (UA) Negative (Negative); Ketones,Urine Negative (Negative); Mucus,Urine Occasional /LPF (Occasional); Nitrite,Urine Negative (Negative); Protein,Urine Negative; RBC,Urine 1 /HPF (0-4); Squamous Epithelial Cell,Urine Occasional /HPF (0-10); Urine Color Yellow (Yellow); Urine Specific Gravity 1.015 (1.001-1.035); Urine Urobilinogen < 2.0 EU/DL (0.2-1.0); WBC,Urine 2 /HPF (0-6)
[2018-08-14] MEDS: ALBUTEROL/IPRATROPIUM 3 ML NEB RESP TX SCH (19:28)
[2018-08-14] MEDS: CAPTOPRIL 6.25 MG TABLET PO SCH (21:54)
[2018-08-15] MEDS: methylPREDNISolone SOD SUC 40 MG/1 ML VIAL IV SCH ×3 (00:27→16:25)
[2018-08-15] MEDS: ALBUTEROL/IPRATROPIUM 3 ML NEB RESP TX SCH ×4 (00:33→19:33)
[2018-08-15] MEDS: SPIRONOLACTONE 25 MG TABLET PO SCH (08:38)
[2018-08-15] MEDS: CAPTOPRIL 6.25 MG TABLET PO SCH ×2 (08:38→22:08)
[2018-08-15] MEDS: ASPIRIN CHEW 81 MG TABLET PO SCH (08:39)
[2018-08-15] MEDS: PANTOPRAZOLE 40 MG TABLET PO SCH (08:39)
[2018-08-15] MEDS: CARVEDILOL 3.125 MG TABLET PO SCH ×2 (08:39→16:25)
[2018-08-15] MEDS ORDERED: LEVOFLOXACIN INJ 750 MG in PREMIX 1 EACH IV SCH (09:00)
[2018-08-15] MEDS: LEVOFLOXACIN 750 MG TABLET PO SCH (09:32)
[2018-08-15] MEDS: KETOROLAC 10 MG TABLET PO PRN (14:15)
[2018-08-15] MEDS: MORPHINE 4 MG/1 ML VIAL IV PRN ×2 (16:26→22:03)
[2018-08-16] MEDS: ALBUTEROL/IPRATROPIUM 3 ML NEB RESP TX SCH ×4 (00:07→18:50)
[2018-08-16] MEDS: methylPREDNISolone SOD SUC 40 MG/1 ML VIAL IV SCH ×3 (01:13→17:21)
[2018-08-16] MEDS: MORPHINE 4 MG/1 ML VIAL IV PRN ×4 (03:41→18:19)
[2018-08-16 05:43] LABS: Calcium 8.9 MG/DL (8.5-10.1); Potassium 3.9 MMOL/L (3.5-5.1)
[2018-08-16] MEDS: CAPTOPRIL 6.25 MG TABLET PO SCH ×2 (08:47→21:33)
[2018-08-16] MEDS: LEVOFLOXACIN 750 MG TABLET PO SCH (08:47)
[2018-08-16] MEDS: PANTOPRAZOLE 40 MG TABLET PO SCH (08:48)
[2018-08-16] MEDS: SPIRONOLACTONE 25 MG TABLET PO SCH (08:48)
[2018-08-16] MEDS: ASPIRIN CHEW 81 MG TABLET PO SCH (08:48)
[2018-08-16] MEDS: CARVEDILOL 3.125 MG TABLET PO SCH ×2 (08:48→17:21)
[2018-08-16] MEDS: FUROSEMIDE 20 MG TABLET PO SCH (08:48)
[2018-08-16] MEDS: POLYETHYLENE GLYCOL POWDER 17 GM PACK PO SCH (17:21)
[2018-08-17] MEDS: methylPREDNISolone SOD SUC 40 MG/1 ML VIAL IV SCH ×2 (01:24→08:41)
[2018-08-17] MEDS: ALBUTEROL/IPRATROPIUM 3 ML NEB RESP TX SCH ×4 (01:56→20:02)
[2018-08-17] MEDS: MORPHINE 4 MG/1 ML VIAL IV PRN ×4 (07:17→22:06)
[2018-08-17] MEDS: POLYETHYLENE GLYCOL POWDER 17 GM PACK PO SCH (08:40)
[2018-08-17] MEDS: PANTOPRAZOLE 40 MG TABLET PO SCH (08:41)
[2018-08-17] MEDS: CARVEDILOL 3.125 MG TABLET PO SCH ×2 (08:41→16:19)
[2018-08-17] MEDS: LEVOFLOXACIN 750 MG TABLET PO SCH (08:41)
[2018-08-17] MEDS: ASPIRIN CHEW 81 MG TABLET PO SCH (08:41)
[2018-08-17] MEDS: CAPTOPRIL 6.25 MG TABLET PO SCH ×2 (08:41→21:00)
[2018-08-17] MEDS: SPIRONOLACTONE 25 MG TABLET PO SCH (08:41)
[2018-08-17] MEDS: DOCUSATE SODIUM 100 MG CAPSULE PO SCH ×2 (08:42→21:00)
[2018-08-17] MEDS: KETOROLAC 10 MG TABLET PO PRN (13:41)
[2018-08-17] MEDS: BENZONATATE 100 MG CAPSULE PO SCH (21:00)
[2018-08-18] MEDS: ALBUTEROL/IPRATROPIUM 3 ML NEB RESP TX SCH ×7 (00:42→23:32)
[2018-08-18] MEDS: MORPHINE 4 MG/1 ML VIAL IV PRN ×3 (02:15→11:50)
[2018-08-18] MEDS: BENZONATATE 100 MG CAPSULE PO SCH ×2 (09:51→20:37)
[2018-08-18] MEDS: CAPTOPRIL 6.25 MG TABLET PO SCH ×2 (09:51→20:40)
[2018-08-18] MEDS: predniSONE 20 MG TABLET PO SCH (09:51)
[2018-08-18] MEDS: SPIRONOLACTONE 25 MG TABLET PO SCH (09:52)
[2018-08-18] MEDS: ASPIRIN CHEW 81 MG TABLET PO SCH (09:52)
[2018-08-18] MEDS: DOCUSATE SODIUM 100 MG CAPSULE PO SCH ×2 (09:52→20:37)
[2018-08-18] MEDS: POLYETHYLENE GLYCOL POWDER 17 GM PACK PO SCH (09:52)
[2018-08-18] MEDS: LEVOFLOXACIN 750 MG TABLET PO SCH (09:52)
[2018-08-18] MEDS: CARVEDILOL 3.125 MG TABLET PO SCH ×2 (09:52→17:05)
[2018-08-18] MEDS: PANTOPRAZOLE 40 MG TABLET PO SCH (09:52)
[2018-08-18] MEDS: FUROSEMIDE 20 MG TABLET PO SCH (09:52)
[2018-08-18] MEDS ORDERED: CYCLOBENZAPRINE 10 MG TABLET PO SCH (10:30)
[2018-08-18] MEDS: KETOROLAC 10 MG TABLET PO PRN (22:21)
[2018-08-18] MEDS: CYCLOBENZAPRINE 10 MG TABLET PO PRN (22:22)
[2018-08-19] MEDS: ALBUTEROL/IPRATROPIUM 3 ML NEB RESP TX SCH ×6 (03:33→23:01)
[2018-08-19] MEDS: KETOROLAC 10 MG TABLET PO PRN ×3 (05:51→18:48)
[2018-08-19] MEDS: POLYETHYLENE GLYCOL POWDER 17 GM PACK PO SCH (09:20)
[2018-08-19] MEDS: LEVOFLOXACIN 750 MG TABLET PO SCH (09:21)
[2018-08-19] MEDS: DOCUSATE SODIUM 100 MG CAPSULE PO SCH ×2 (09:21→21:26)
[2018-08-19] MEDS: CAPTOPRIL 6.25 MG TABLET PO SCH ×2 (09:21→21:23)
[2018-08-19] MEDS: PANTOPRAZOLE 40 MG TABLET PO SCH (09:21)
[2018-08-19] MEDS: SPIRONOLACTONE 25 MG TABLET PO SCH (09:21)
[2018-08-19] MEDS: ASPIRIN CHEW 81 MG TABLET PO SCH (09:21)
[2018-08-19] MEDS: CARVEDILOL 3.125 MG TABLET PO SCH ×2 (09:21→16:59)
[2018-08-19] MEDS: predniSONE 20 MG TABLET PO SCH (09:21)
[2018-08-19] MEDS: BENZONATATE 100 MG CAPSULE PO SCH ×2 (09:24→21:26)
[2018-08-19] MEDS: CYCLOBENZAPRINE 10 MG TABLET PO PRN ×2 (11:40→21:25)
[2018-08-20] MEDS: ALBUTEROL/IPRATROPIUM 3 ML NEB RESP TX SCH ×3 (03:05→10:20)
[2018-08-20] MEDS: CYCLOBENZAPRINE 10 MG TABLET PO PRN (06:38)
[2018-08-20] MEDS: KETOROLAC 10 MG TABLET PO PRN (06:39)
[2018-08-20 08:03] VITALS: BP 134/49
[2018-08-20] MEDS: BENZONATATE 100 MG CAPSULE PO SCH (08:28)
[2018-08-20] MEDS: CARVEDILOL 3.125 MG TABLET PO SCH (08:28)
[2018-08-20] MEDS: CAPTOPRIL 6.25 MG TABLET PO SCH (08:28)
[2018-08-20] MEDS: POLYETHYLENE GLYCOL POWDER 17 GM PACK PO SCH (08:29)
[2018-08-20] MEDS: SPIRONOLACTONE 25 MG TABLET PO SCH (08:29)
[2018-08-20] MEDS: FUROSEMIDE 20 MG TABLET PO SCH (08:29)
[2018-08-20] MEDS: DOCUSATE SODIUM 100 MG CAPSULE PO SCH (08:29)
[2018-08-20] MEDS: ASPIRIN CHEW 81 MG TABLET PO SCH (08:29)
[2018-08-20] MEDS: predniSONE 20 MG TABLET PO SCH (08:29)
[2018-08-20] MEDS: PANTOPRAZOLE 40 MG TABLET PO SCH (08:29)
== END 2018-08-20 11:20 | disposition home health service (06) ==
LOC: N.2E → SUATTDRO 14:38
PROVIDERS: ADMIT Internal Medicine; ATTEND Internal Medicine

== ENCOUNTER 2021-07-02 05:38 | Observation (INO) ==
[2021-06-24 11:54] LABS: Basophils # 0.1 10*3/uL (0.0-0.2); Eosinophils # 0.2 10*3/uL (0.0-0.87); Hematocrit 41.6 VOL% (35.7-47.0); Hemoglobin 12.6 GM/DL (12.0-16.0); Immature Granulocytes % 0.3 %; Immature Granulocytes Absolute 0.02 #; Lymphocytes # 1.2 10*3/uL (1.4-4.0); Lymphocytes % 19.7 % (21.3-54.2); Mean Corpuscular HGB Conc 30.3 GM/DL (32-36); Mean Corpuscular Volume 95.4 FL (87-102); Monocytes % 5.6 % (1.7-12.7); Neutrophils % 70.4 % (38.7-73.9); Platelet Count 194 T/CUMM (130-400); Red Blood Count 4.36 MC/CUMM (3.8-5.5); Red Cell Distribution Width 14.5 % (9.3-17.3); White Blood Count 6.2 T/CUMM (4-12)
[2021-06-24 12:01] LABS: INR 1.2; PT Patient Result 13.5 SECS (10.5-12.0); Partial Thromboplastin Time 29.9 SECS (23.8-32.1)
[2021-06-24 12:07] LABS: Albumin 3.4 G/DL (3.4-5.0); Bilirubin,Total 1.4 MG/DL (0.20-1.00); Osmolality,Calculated 278.5 MOS/KG (273-304); Potassium 3.6 MMOL/L (3.5-5.1); Total Protein 6.4 G/DL (6.4-8.2)
[2021-07-02] MEDS ORDERED: cefTRIAXone 1,000 MG VIAL ONE (06:34)
[2021-07-02] MEDS: LACTATED RINGERS 1,000 ML IV SCH (06:52)
[2021-07-02] MEDS ORDERED: fentaNYL 100 MCG/2 ML VIAL ONE (07:11)
[2021-07-02] MEDS ORDERED: propofoL 200 MG/20 ML VIAL IV ONE (07:11)
[2021-07-02] MEDS ORDERED: ETOMIDATE 40 MG/20 ML VIAL IV ONE (07:11)
[2021-07-02] MEDS ORDERED: SEVOFLURANE 1 UNIT/15 MINUTE INH ONE (07:11)
[2021-07-02] MEDS ORDERED: LIDOCAINE 2% 5 ML VIAL ONE (07:11)
[2021-07-02] MEDS ORDERED: ePHEDrine 50 MG/ML VIAL ONE (07:52)
[2021-07-02] MEDS ORDERED: PHENYLEPHRINE 1 MG/10 ML SYRINGE IV ONE (07:52)
[2021-07-02] MEDS ORDERED: FUROSEMIDE 40 MG/4 ML VIAL IV ONE (08:18)
[2021-07-02 08:44] LABS: Basophils % 0.4 % (0.0-0.8); Eosinophils # 0.1 10*3/uL (0.0-0.87); Eosinophils % 0.7 % (0.00-10.9); Hematocrit 43.3 VOL% (35.7-47.0); Hemoglobin 13.6 GM/DL (12.0-16.0); Immature Granulocytes % 0.5 %; Immature Granulocytes Absolute 0.05 #; Lymphocytes # 1.1 10*3/uL (1.4-4.0); Lymphocytes % 9.9 % (21.3-54.2); Mean Corpuscular HGB Conc 31.4 GM/DL (32-36); Mean Corpuscular Volume 91.9 FL (87-102); Mean Platelet Volume 10.5 FL (9.6-12.0); Monocytes % 4.5 % (1.7-12.7); NRBC # 0.02 10*3/uL; Platelet Count 198 T/CUMM (130-400); Red Blood Count 4.71 MC/CUMM (3.8-5.5); Red Cell Distribution Width 14.5 % (9.3-17.3); White Blood Count 10.8 T/CUMM (4-12)
[2021-07-02 08:53] LABS: ABG HCO3 23.6 MMOL/L (20-26); ABG PCO2 35.3 MM HG (35-48); ABG TCO2 19.9 MMOL/L (23-27)
[2021-07-02 09:10] LABS: Albumin 3.3 G/DL (3.4-5.0); Bilirubin,Total 1.6 MG/DL (0.20-1.00); Calcium 8.4 MG/DL (8.5-10.1); Osmolality,Calculated 273.1 MOS/KG (273-304); Potassium 3.5 MMOL/L (3.5-5.1); Total Protein 6.8 G/DL (6.4-8.2)
[2021-07-02] MEDS ORDERED: MAGNESIUM SULF RIDER 2 GM/50 ML PREMIX IV ONE (11:00)
[2021-07-02] MEDS: ONDANSETRON 4 MG/2 ML VIAL IV PRN ×3 (11:42→23:38)
[2021-07-02] MEDS: OXYBUTYNIN 5 MG TABLET PO SCH ×2 (14:59→20:03)
[2021-07-02] MEDS: ACETAMINOPHEN 325 MG TABLET PO PRN (15:34)
[2021-07-02] MEDS: AMPICILLIN INJ 1,000 MG in SODIUM CHLORIDE 0.9% 100 ML IV SCH ×2 (18:01→23:39)
[2021-07-02] MEDS: carvediloL 6.25 MG TABLET PO SCH (18:01)
[2021-07-02] MEDS: MELATONIN 3 MG TABLET PO PRN (21:22)
[2021-07-03 05:42] LABS: Basophils # 0.1 10*3/uL (0.0-0.2); Basophils % 0.4 % (0.0-0.8); Eosinophils # 0.1 10*3/uL (0.0-0.87); Hemoglobin 12.8 GM/DL (12.0-16.0); Immature Granulocytes % 0.3 %; Immature Granulocytes Absolute 0.04 #; Lymphocytes # 1.2 10*3/uL (1.4-4.0); Mean Corpuscular HGB Conc 31.2 GM/DL (32-36); Mean Corpuscular Volume 90.7 FL (87-102); Mean Platelet Volume 10.7 FL (9.6-12.0); Monocytes % 4.8 % (1.7-12.7); Neutrophils % 83.5 % (38.7-73.9); Platelet Count 183 T/CUMM (130-400); Red Blood Count 4.52 MC/CUMM (3.8-5.5); Red Cell Distribution Width 14.5 % (9.3-17.3); White Blood Count 12.1 T/CUMM (4-12)
[2021-07-03 06:48] LABS: Calcium 8.4 MG/DL (8.5-10.1); Osmolality,Calculated 267.4 MOS/KG (273-304); Potassium 3.3 MMOL/L (3.5-5.1)
[2021-07-03] MEDS: AMPICILLIN INJ 1,000 MG in SODIUM CHLORIDE 0.9% 100 ML IV SCH ×2 (06:50→20:57)
[2021-07-03] MEDS: ACETAMINOPHEN 325 MG TABLET PO PRN (06:54)
[2021-07-03] MEDS ORDERED: POTASSIUM CHLORIDE 20 MEQ TABLET PO ONE (08:06)
[2021-07-03] MEDS ORDERED: SPIRONOLACTONE 25 MG TABLET PO SCH (09:00)
[2021-07-03] MEDS: PANTOPRAZOLE 40 MG TABLET PO SCH (09:04)
[2021-07-03] MEDS: carvediloL 6.25 MG TABLET PO SCH ×2 (09:04→17:30)
[2021-07-03] MEDS: ASPIRIN CHEW 81 MG TABLET PO SCH (09:04)
[2021-07-03] MEDS: ROSUVASTATIN 10 MG TABLET PO SCH (09:04)
[2021-07-03] MEDS: OXYBUTYNIN 5 MG TABLET PO SCH ×3 (09:04→20:58)
[2021-07-03] MEDS: DILTIAZEM CD 120 MG CAPSULE PO SCH (09:04)
[2021-07-03] MEDS: LACTATED RINGERS 1,000 ML IV SCH (10:38)
[2021-07-03] MEDS: ONDANSETRON 4 MG/2 ML VIAL IV PRN ×2 (12:35→20:55)
[2021-07-03] MEDS: PROMETHAZINE 25 MG/1 ML VIAL IM PRN ×2 (17:29→23:25)
[2021-07-03 18:34] LABS: Calcium 8.3 MG/DL (8.5-10.1); Osmolality,Calculated 267.7 MOS/KG (273-304); Potassium 4.5 MMOL/L (3.5-5.1)
[2021-07-03] MEDS: MELATONIN 3 MG TABLET PO PRN (20:58)
[2021-07-04] MEDS: ONDANSETRON 4 MG/2 ML VIAL IV PRN ×2 (04:05→10:42)
[2021-07-04] MEDS: AMPICILLIN INJ 1,000 MG in SODIUM CHLORIDE 0.9% 100 ML IV SCH ×2 (04:07→14:28)
[2021-07-04] MEDS: PROMETHAZINE 25 MG/1 ML VIAL IM PRN ×2 (05:49→14:28)
[2021-07-04] MEDS: ROSUVASTATIN 10 MG TABLET PO SCH (08:43)
[2021-07-04] MEDS: PANTOPRAZOLE 40 MG TABLET PO SCH (08:43)
[2021-07-04] MEDS: carvediloL 6.25 MG TABLET PO SCH ×2 (08:43→16:24)
[2021-07-04] MEDS: DILTIAZEM CD 120 MG CAPSULE PO SCH (08:44)
[2021-07-04] MEDS: OXYBUTYNIN 5 MG TABLET PO SCH ×2 (08:44→14:28)
[2021-07-04] MEDS: ASPIRIN CHEW 81 MG TABLET PO SCH (08:44)
[2021-07-04 09:34] LABS: Basophils % 0.2 % (0.0-0.8); Eosinophils % 0.1 % (0.00-10.9); Hematocrit 40.1 VOL% (35.7-47.0); Hemoglobin 12.6 GM/DL (12.0-16.0); Immature Granulocytes % 0.4 %; Immature Granulocytes Absolute 0.04 #; Lymphocytes # 1.5 10*3/uL (1.4-4.0); Lymphocytes % 15.8 % (21.3-54.2); Mean Corpuscular HGB Conc 31.4 GM/DL (32-36); Mean Corpuscular Volume 90.9 FL (87-102); Mean Platelet Volume 10.9 FL (9.6-12.0); Monocytes % 3.6 % (1.7-12.7); Neutrophils % 79.9 % (38.7-73.9); Red Blood Count 4.41 MC/CUMM (3.8-5.5); Red Cell Distribution Width 14.5 % (9.3-17.3); White Blood Count 9.5 T/CUMM (4-12)
[2021-07-04 09:35] LABS: Platelet Count 107 T/CUMM (130-400)
[2021-07-04 09:44] LABS: Calcium 8.3 MG/DL (8.5-10.1); Osmolality,Calculated 269.5 MOS/KG (273-304); Potassium 4.1 MMOL/L (3.5-5.1)
[2021-07-04 10:03] LABS: Platelet Estimate Adequate
[2021-07-04 10:04] LABS: Anisocytosis 1+; Macrocytosis Slight
[2021-07-04] MEDS: ACETAMINOPHEN 325 MG TABLET PO PRN (14:28)
[2021-07-04] MEDS ORDERED: FAMOTIDINE 20 MG/2 ML VIAL IV ONE (15:06)
[2021-07-04 15:44] VITALS: BP 111/43
== END 2021-07-04 17:13 | disposition home or self-care (01) ==
LOC: N.3E 05:38 → N.OR 05:38 → N.SDSINP 05:39 → N.3E 09:52
PROVIDERS: ADMIT Surgery; ATTEND Surgery